=== PATIENT | female | born 1975 | race Caucasian/White ===

== ENCOUNTER → 2016-03-18 | Outpatient (CLI) | payer MEDICARE, MEDICAID ==
[~2016-03-18] MED LIST: ACETAMINOPHEN-H1 TA2 PO; ATIVAN1 MG PO; AUGMENTIN 875 M1 TAB PO; BACTRIM 400 MG-1 TAB PO; BACTRIM DS 8001 TA1 PO; BENADRYL ALLERG25 M5 PO; BENADRYL25 M1 PO; BENADRYL25 M2 PO; BENADRYL50 MG PO; BENTYL PO; BENTYL10 MG PO; BIAXIN500 MG PO; CHERATUSSIN AC240 ML PO; CIPRO500 MG PO; CIPROFLOXACIN500 MG PO; CLARITIN10 MG PO; CLEOCIN150 MG PO; CLINDAMYCIN HC300 MG PO; CYCLOBENZAPRINE10 MG PO; CYCLOBENZAPRINE5 M3 PO; DICYCLOMINE HYD20 MG PO; DOK PLUS 50 MG-1 TAB PO; EPIPEN 2-PAK1 MG/ML IJ; EPIPEN 2-PAK1 MG/ML MR; ESCITALOPRAM OX20 MG PO; FAMOTIDINE20 M1 PO; FLAGYL500 MG PO; HYDROCODONE BIT1 T11 PO; KLONOPIN1 MG PO; MEDROL DOSEPAK4 MG PO; METHYLPRED-DP4 MG PO; MOTRIN800 MG PO; NIGHTTIME SLEEP PO; NORCO 10-325 T1 EACH PO; NORCO 325 MG-101 TAB PO; NORCO 325 MG-51 TAB PO; NORCO 5-325 TA1 EACH PO; PEN-V500 MG PO; PENICILLIN V P250 MG PO; PEPCID40 MG PO; PERCOCET 325 MG1 TA2 PO; PERCOCET 325 MG1 TA7 PO; PERIDEX 480 ML480 ML PO; PHARBEDRYL PO; PREDNICOT20 MG PO; PREDNISONE10 MG PO; PREDNISONE20 M1 PO; PROAIR HFA8.5 GM IH; PROMETHAZINE D240 ML PO; Peridex 473 ML473 ML PO; SOMA350 MG PO; TOPAMAX100 MG PO; TRAMADOL HCL50 MG PO; TRAZADONE HYDR100 MG PO; TYLENOL EXTRA500 M2 PO; ULTRAM50 MG PO; VALIUM10 MG PO; VENTOLIN H0.09 MG/AC INH; VICO10300 PO; VICODIN 5-3001 EACH PO; VIVITROL380 MG IM; WELLBUTRIN SR200 MG PO; XANAX0.25 MG PO; ZITHROMAX250 MG PO; ZOFRAN ODT4 MG SL; ZOLOFT100 MG PO; ZOVIRAX200 MG PO; ZOVIRAX800 MG PO; ZYRTEC10 MG PO
== END | disposition home or self-care (01) ==
LOC: RESCLI 03:40
DX: D64.9 Anemia, unspecified (principal); J45.909 Unspecified asthma, uncomplicated; E55.9 Vitamin D deficiency, unspecified; R53.83 Other fatigue

== ENCOUNTER 2017-01-10 18:48 | Emergency (ER) | payer MEDICARE ==
[~2017-01-10] VITALS: Ht 172.7 cm; Wt 99.8 kg
[2017-01-10] MEDS ORDERED: PROVENTIL HFA6.7 GM INH (19:03)
[2017-01-10 19:05] VITALS: BP 132/88
[2017-01-10] MEDS ORDERED: PREDNISONE10 MG PO (19:09)
== END 2017-01-10 19:16 | disposition home or self-care (01) ==
LOC: ED 18:48
DX: R21 Rash and other nonspecific skin eruption (principal); R03.0 Elevated blood-pressure reading, without diagnosis of hypertension; F17.210 Nicotine dependence, cigarettes, uncomplicated; J45.909 Unspecified asthma, uncomplicated; G89.29 Other chronic pain; M54.5 Low back pain; K21.9 Gastro-esophageal reflux disease without esophagitis; K58.9 Irritable bowel syndrome, unspecified; G43.909 Migraine, unspecified, not intractable, without status migrainosus; E66.9 Obesity, unspecified; Z79.899 Other long term (current) drug therapy; Z90.49 Acquired absence of other specified parts of digestive tract; Z98.51 Tubal ligation status; Z90.711 Acquired absence of uterus with remaining cervical stump; Z88.1 Allergy status to other antibiotic agents; Z88.0 Allergy status to penicillin; Z91.041 Radiographic dye allergy status; Z88.5 Allergy status to narcotic agent

== ENCOUNTER 2017-01-18 09:03 | Emergency (ER) | payer MEDICARE ==
[~2017-01-18] VITALS: Ht 172.7 cm; Wt 99.8 kg
[~2017-01-18 09:03] MED LIST changes: +PROVENTIL HFA6.7 GM INH
[2017-01-18 09:11] VITALS: BP 116/79
[2017-01-18] MEDS ORDERED: 'CYPROHEPTADINE4 MG PO (09:13)
[2017-01-18] MEDS ORDERED: IPRATROPIUM BRO15 ML NAS (09:13)
[2017-01-18] MEDS ORDERED: AZELASTINE137 MCG/0. NAS (09:13)
[2017-01-18] MEDS ORDERED: BREO ELLIPTA 11 EACH INH (09:14)
== END 2017-01-18 11:39 | disposition home or self-care (01) ==
LOC: ED 09:03
DX: T78.40XA Allergy, unspecified, initial encounter (principal); F17.210 Nicotine dependence, cigarettes, uncomplicated; K21.9 Gastro-esophageal reflux disease without esophagitis; J44.1 Chronic obstructive pulmonary disease with (acute) exacerbation; G89.29 Other chronic pain; X58.XXXA Exposure to other specified factors, initial encounter; Z88.0 Allergy status to penicillin; Z90.49 Acquired absence of other specified parts of digestive tract; Z98.51 Tubal ligation status; Z88.6 Allergy status to analgesic agent

== ENCOUNTER 2017-03-09 13:41 | Emergency (ER) | payer MEDICARE ==
[~2017-03-09] VITALS: Ht 172.7 cm; Wt 90.7 kg
[~2017-03-09 13:41] MED LIST changes: +'CYPROHEPTADINE4 MG PO; +AZELASTINE137 MCG/0. NAS; +BREO ELLIPTA 11 EACH INH; +IPRATROPIUM BRO15 ML NAS
[2017-03-09 13:47] VITALS: BP 133/61
[2017-03-09] MEDS ORDERED: PREDNISONE10 MG PO (13:56)
== END 2017-03-09 14:01 | disposition home or self-care (01) ==
LOC: ED 13:41
DX: R21 Rash and other nonspecific skin eruption (principal); R03.0 Elevated blood-pressure reading, without diagnosis of hypertension; J44.1 Chronic obstructive pulmonary disease with (acute) exacerbation; K58.9 Irritable bowel syndrome, unspecified; G89.29 Other chronic pain; F41.9 Anxiety disorder, unspecified; J45.909 Unspecified asthma, uncomplicated; F17.210 Nicotine dependence, cigarettes, uncomplicated; K21.9 Gastro-esophageal reflux disease without esophagitis; F32.9 Major depressive disorder, single episode, unspecified; Z88.0 Allergy status to penicillin; Z88.8 Allergy status to other drugs, medicaments and biological substances; Z91.041 Radiographic dye allergy status; Z88.6 Allergy status to analgesic agent; Z91.018 Allergy to other foods; Z79.899 Other long term (current) drug therapy; Z90.49 Acquired absence of other specified parts of digestive tract; Z90.710 Acquired absence of both cervix and uterus; Z98.51 Tubal ligation status

== ENCOUNTER 2017-03-17 19:28 | Emergency (ER) | payer MEDICARE ==
[~2017-03-17] VITALS: Ht 172.7 cm; Wt 99.8 kg
[2017-03-17 21:00] VITALS: BP 102/60
[2017-03-17] MEDS ORDERED: PREDNISONE10 MG PO (21:27)
== END 2017-03-17 22:50 | disposition home or self-care (01) ==
LOC: ED 19:28
DX: L50.8 Other urticaria (principal); F17.210 Nicotine dependence, cigarettes, uncomplicated; Z90.49 Acquired absence of other specified parts of digestive tract; Z98.51 Tubal ligation status; Z90.711 Acquired absence of uterus with remaining cervical stump; Z79.899 Other long term (current) drug therapy; Z88.1 Allergy status to other antibiotic agents; Z88.0 Allergy status to penicillin; Z88.6 Allergy status to analgesic agent; Z91.041 Radiographic dye allergy status; Z91.018 Allergy to other foods

== ENCOUNTER 2017-03-21 17:01 | Emergency (ER) | payer MEDICARE ==
[~2017-03-21] VITALS: Ht 172.7 cm; Wt 99.8 kg
[2017-03-21] MEDS ORDERED: BENADRYL ALLERG25 M5 PO (17:10)
[2017-03-21 17:11] VITALS: BP 149/85
[2017-03-21] MEDS ORDERED: PEPCID40 MG PO (17:11)
[2017-03-21 17:43] LABS: HEMATOCRIT 37.1 % (37.0-47.0); HEMOGLOBIN 12.2 g/dl (12.0-16.0); MEAN CELL VOLUME 84.7 fl (81.0-99.0); MEAN CORPUSCULAR HGB 27.9 pg (27.0-31.0); MEAN CORPUSCULAR HGB CONC 32.9 g/dl (33.0-37.0); MEAN PLATELET VOLUME 10.1 fl (9.6-12.3); PLATELET COUNT AUTOMATED 298 10*3/uL (130-400); RED BLOOD COUNT 4.38 10*6/uL (4.10-5.10); RED CELL DISTRI WIDTH 13.8 % (0-14.5); WHITE BLOOD COUNT 17.5 10*3/uL (4.8-10.8)
[2017-03-21 18:01] LABS: ALBUMIN 3.7 gm/dl (3.1-4.5); ALKALINE PHOSPHATASE 62 U/L (45-117); BUN 16 mg/dl (7-24); CHLORIDE 105 mmol/L (98-107); CREATININE 0.68 mg/dL (0.55-1.02); SGOT/AST 7 IU/L (3-35); SGPT/ALT 26 U/L (12-78); SODIUM 142 mmol/L (136-145); TOTAL PROTEIN 6.9 gm/dL (6.4-8.2)
[2017-03-21 18:02] LABS: TROPONIN I < 0.015 ng/ml (<0.045)
[2017-03-21 18:11] LABS: ATYPICAL LYMPHS 1 % (0-0); TOTAL CELLS COUNTED 100 #CELLS
[2017-03-21 18:12] LABS: PLATELET SUFFICIENCY NORMAL (NORMAL)
== END 2017-03-21 18:34 | disposition home or self-care (01) ==
LOC: ED 17:01
PROVIDERS: Nurse Practitioner Family
DX: F41.9 Anxiety disorder, unspecified (principal); K21.9 Gastro-esophageal reflux disease without esophagitis; E66.9 Obesity, unspecified; F17.210 Nicotine dependence, cigarettes, uncomplicated; G43.909 Migraine, unspecified, not intractable, without status migrainosus; G89.29 Other chronic pain; Z88.0 Allergy status to penicillin; Z88.6 Allergy status to analgesic agent; Z90.49 Acquired absence of other specified parts of digestive tract; Z98.51 Tubal ligation status; Z91.041 Radiographic dye allergy status; Z88.1 Allergy status to other antibiotic agents; Z91.018 Allergy to other foods

== ENCOUNTER 2017-07-26 11:03 | Emergency (ER) | payer MEDICARE ==
[~2017-07-26] VITALS: Ht 172.7 cm; Wt 99.8 kg
[2017-07-26] MEDS ORDERED: TOPIRAMATE50 M2 PO (11:25)
[2017-07-26] MEDS ORDERED: HYDROXYZINE HCL25 M1 PO (11:25)
[2017-07-26] MEDS ORDERED: MONTELUKAST SOD10 MG PO (11:26)
[2017-07-26 12:05] LABS: BASO # 0.1 10*3/uL (0.0-0.1); BASO % 0.8 % (0.0-1.0); EOS # 0.3 10*3/uL (0.0-0.4); EOS % 4.4 % (1.0-4.0); HEMATOCRIT 37.8 % (37.0-47.0); HEMOGLOBIN 12.4 g/dl (12.0-16.0); LYMPH % 32.1 % (27.0-41.0); MEAN CELL VOLUME 82.7 fl (81.0-99.0); MEAN CORPUSCULAR HGB 27.1 pg (27.0-31.0); MEAN CORPUSCULAR HGB CONC 32.8 g/dl (33.0-37.0); MEAN PLATELET VOLUME 10.6 fl (9.6-12.3); MONO # 0.3 10*3/uL (0.1-1.0); MONO % 5.2 % (3.0-9.0); NEUT # 3.5 10*3/uL (2.3-7.9); NEUT % 57.2 % (47.0-73.0); PLATELET COUNT AUTOMATED 280 10*3/uL (130-400); RED BLOOD COUNT 4.57 10*6/uL (4.10-5.10); WHITE BLOOD COUNT 6.1 10*3/uL (4.8-10.8)
[2017-07-26 12:28] LABS: ALKALINE PHOSPHATASE 64 U/L (45-117); BUN 11 mg/dl (7-24); CHLORIDE 113 mmol/L (98-107); SGOT/AST 11 IU/L (3-35); SGPT/ALT 18 U/L (12-78); SODIUM 144 mmol/L (136-145); TOTAL PROTEIN 7.1 gm/dL (6.4-8.2)
[2017-07-26 12:29] LABS: TROPONIN I < 0.015 ng/ml (<0.045)
[2017-07-26 12:53] VITALS: BP 128/75
[2017-07-26] MEDS ORDERED: XANAX0.25 MG PO (13:05)
== END 2017-07-26 13:26 | disposition home or self-care (01) ==
LOC: ED 11:03
PROVIDERS: Emergency Medicine
DX: F41.9 Anxiety disorder, unspecified (principal); G89.29 Other chronic pain; J45.909 Unspecified asthma, uncomplicated; K21.9 Gastro-esophageal reflux disease without esophagitis; K58.9 Irritable bowel syndrome, unspecified; G43.909 Migraine, unspecified, not intractable, without status migrainosus; F17.210 Nicotine dependence, cigarettes, uncomplicated; E66.9 Obesity, unspecified; Z90.49 Acquired absence of other specified parts of digestive tract; Z98.51 Tubal ligation status; Z88.1 Allergy status to other antibiotic agents; Z88.0 Allergy status to penicillin; Z91.041 Radiographic dye allergy status; Z91.018 Allergy to other foods; Z88.6 Allergy status to analgesic agent

== ENCOUNTER 2017-08-09 23:14 | Emergency (ER) | payer MEDICARE ==
[~2017-08-09] VITALS: Ht 173.9 cm; Wt 99.8 kg
[2017-08-09 23:14] VITALS: BP 119/61
[~2017-08-09 23:14] MED LIST changes: +HYDROXYZINE HCL25 M1 PO; +MONTELUKAST SOD10 MG PO; +TOPIRAMATE50 M2 PO
[2017-08-10 00:15] LABS: BASO % 0.3 % (0.0-1.0); EOS # 0.4 10*3/uL (0.0-0.4); EOS % 5.7 % (1.0-4.0); HEMOGLOBIN 12.4 g/dl (12.0-16.0); LYMPH # 2.3 10*3/uL (1.3-4.4); LYMPH % 30.7 % (27.0-41.0); MEAN CELL VOLUME 81.1 fl (81.0-99.0); MEAN CORPUSCULAR HGB 27.2 pg (27.0-31.0); MEAN CORPUSCULAR HGB CONC 33.5 g/dl (33.0-37.0); MEAN PLATELET VOLUME 10.8 fl (9.6-12.3); MONO # 0.4 10*3/uL (0.1-1.0); MONO % 5.5 % (3.0-9.0); NEUT # 4.3 10*3/uL (2.3-7.9); NEUT % 57.5 % (47.0-73.0); PLATELET COUNT AUTOMATED 256 10*3/uL (130-400); RED BLOOD COUNT 4.56 10*6/uL (4.10-5.10); RED CELL DISTRI WIDTH 13.1 % (0-14.5); WHITE BLOOD COUNT 7.5 10*3/uL (4.8-10.8)
[2017-08-10 00:32] LABS: ALBUMIN 4.1 gm/dl (3.1-4.5); ALKALINE PHOSPHATASE 67 U/L (45-117); BUN 18 mg/dl (7-24); CHLORIDE 111 mmol/L (98-107); CREATININE 1.14 mg/dL (0.55-1.02); POTASSIUM 3.4 mmol/L (3.5-5.1); SGOT/AST 15 IU/L (3-35); SGPT/ALT 22 U/L (12-78); SODIUM 143 mmol/L (136-145); TOTAL PROTEIN 7.3 gm/dL (6.4-8.2)
[2017-08-10 00:35] LABS: TROPONIN I < 0.015 ng/ml (<0.045)
[2017-08-10] MEDS ORDERED: Orphenadrine C100 MG PO (01:01)
[2017-08-10] MEDS ORDERED: TYLENOL325 M1 PO (01:01)
[2017-08-10] MEDS ORDERED: XANAX0.5 MG PO (01:03)
[2017-09-13] MEDS ORDERED: MEDROL DOSEPAK4 MG PO (21:28)
== END 2017-08-10 02:17 | disposition home or self-care (01) ==
LOC: ED 23:14
PROVIDERS: Emergency Medicine Emergency Medical Services
DX: S16.1XXA Strain of muscle, fascia and tendon at neck level, initial encounter (principal); F41.1 Generalized anxiety disorder; J44.1 Chronic obstructive pulmonary disease with (acute) exacerbation; K21.9 Gastro-esophageal reflux disease without esophagitis; Z90.49 Acquired absence of other specified parts of digestive tract; Z88.0 Allergy status to penicillin; Z88.8 Allergy status to other drugs, medicaments and biological substances; X58.XXXA Exposure to other specified factors, initial encounter; Y93.89 Activity, other specified; Y92.89 Other specified places as the place of occurrence of the external cause; Y99.8 Other external cause status

== ENCOUNTER 2017-08-15 19:27 | Emergency (ER) | payer MEDICARE ==
[~2017-08-15] VITALS: Ht 172.7 cm; Wt 99.8 kg
[~2017-08-15 19:27] MED LIST changes: +Orphenadrine C100 MG PO; +TYLENOL325 M1 PO; +XANAX0.5 MG PO
[2017-08-15] MEDS ORDERED: XANAX0.5 MG PO (19:47)
[2017-09-13] MEDS ORDERED: MEDROL DOSEPAK4 MG PO (21:28)
== END 2017-08-15 20:20 | disposition home or self-care (01) ==
LOC: ED 19:27
DX: F41.1 Generalized anxiety disorder (principal); F43.0 Acute stress reaction; K21.9 Gastro-esophageal reflux disease without esophagitis; J44.9 Chronic obstructive pulmonary disease, unspecified; G43.909 Migraine, unspecified, not intractable, without status migrainosus; F17.210 Nicotine dependence, cigarettes, uncomplicated; Z88.0 Allergy status to penicillin; Z88.1 Allergy status to other antibiotic agents; Z88.6 Allergy status to analgesic agent; Z91.041 Radiographic dye allergy status; Z91.018 Allergy to other foods; Z79.899 Other long term (current) drug therapy

== ENCOUNTER 2017-09-15 21:47 | Emergency (ER) | payer MEDICARE ==
[~2017-09-15] VITALS: Ht 172.7 cm; Wt 99.8 kg
[2017-09-15 21:48] VITALS: BP 118/50
[2017-09-15] MEDS ORDERED: BENADRYL ALLERG25 M5 PO (22:03)
[2017-09-15] MEDS ORDERED: PREDNISONE20 M1 PO (22:03)
[2017-11-04] MEDS ORDERED: PREDNISONE10 MG PO (02:53)
== END 2017-09-15 22:15 | disposition home or self-care (01) ==
LOC: ED 21:47
DX: R21 Rash and other nonspecific skin eruption (principal); J44.9 Chronic obstructive pulmonary disease, unspecified; K21.9 Gastro-esophageal reflux disease without esophagitis; G43.909 Migraine, unspecified, not intractable, without status migrainosus; F17.210 Nicotine dependence, cigarettes, uncomplicated; Z88.0 Allergy status to penicillin; Z88.1 Allergy status to other antibiotic agents; Z88.6 Allergy status to analgesic agent; Z91.041 Radiographic dye allergy status; Z91.018 Allergy to other foods; Z88.8 Allergy status to other drugs, medicaments and biological substances; Z79.899 Other long term (current) drug therapy

== ENCOUNTER 2017-09-26 21:05 | Emergency (ER) | payer MEDICARE ==
[~2017-09-26] VITALS: Ht 172.7 cm; Wt 99.8 kg
[2017-09-26 21:34] LABS: BILIRUBIN NEGATIVE (NEGATIVE); BLOOD NEGATIVE (NEGATIVE); CLARITY CLEAR (CLEAR); COLOR YELLOW (YELLOW); GLUCOSE NEGATIVE (NEGATIVE); KETONE NEGATIVE (NEGATIVE); LEUKO ESTERASE NEGATIVE (NEGATIVE); NITRITE NEGATIVE (NEGATIVE); SPECIFIC GRAVITY 1.025 (1.005-1.030); UROBILINOGEN 0.2 E.U./dl (0.2-1.0)
[2017-09-26 21:42] LABS: BACTERIA 1+; RBC 0-2 rbc/hpf (0-2)
[2017-09-26 22:13] LABS: HEMATOCRIT 36.4 % (37.0-47.0); MEAN CELL VOLUME 83.1 fl (81.0-99.0); MEAN CORPUSCULAR HGB 27.4 pg (27.0-31.0); MEAN PLATELET VOLUME 10.3 fl (9.6-12.3); PLATELET COUNT AUTOMATED 262 10*3/uL (130-400); RED BLOOD COUNT 4.38 10*6/uL (4.10-5.10); WHITE BLOOD COUNT 18.3 10*3/uL (4.8-10.8)
[2017-09-26 22:28] LABS: ALKALINE PHOSPHATASE 67 U/L (45-117); BUN 18 mg/dl (7-24); CHLORIDE 113 mmol/L (98-107); CREATININE 0.91 mg/dL (0.55-1.02); LIPASE 111 U/L (73-393); POTASSIUM 3.8 mmol/L (3.5-5.1); SGOT/AST 9 IU/L (3-35); SGPT/ALT 32 U/L (12-78); SODIUM 142 mmol/L (136-145)
[2017-09-26 22:34] LABS: BASOPHILS 1 % (0-1); TOTAL CELLS COUNTED 100 #CELLS
[2017-09-26 22:35] LABS: PLATELET SUFFICIENCY NORMAL (NORMAL); POLYCHROMASIA SLIGHT
[2017-09-27 00:18] VITALS: BP 139/56
[2017-09-27] MEDS ORDERED: CIPRO500 MG PO (00:46)
[2017-11-04] MEDS ORDERED: PREDNISONE10 MG PO (02:53)
== END 2017-09-27 01:12 | disposition home or self-care (01) ==
LOC: ED 21:05
PROVIDERS: Physician Assistant
DX: N39.0 Urinary tract infection, site not specified (principal); R10.30 Lower abdominal pain, unspecified; F17.210 Nicotine dependence, cigarettes, uncomplicated; Z90.49 Acquired absence of other specified parts of digestive tract; Z98.51 Tubal ligation status; Z90.711 Acquired absence of uterus with remaining cervical stump; Z79.899 Other long term (current) drug therapy; Z88.1 Allergy status to other antibiotic agents; Z88.0 Allergy status to penicillin; Z88.6 Allergy status to analgesic agent; Z91.041 Radiographic dye allergy status; Z88.5 Allergy status to narcotic agent

== ENCOUNTER → 2017-11-18 | Day surgery (SDC) | payer MEDICARE ==
[~2017-11-18] VITALS: Ht 172.7 cm; Wt 99.8 kg
[~2017-11-18] MED LIST changes: +KLONOPIN0.5 MG PO; +LEXAPRO20 MG PO; +MELATONIN10 M4 PO; +NEURONTIN600 MG PO; +PROBIOTIC250 MG PO; +WELLBUTRIN SR150 MG PO
[2017-11-18 09:00] VITALS: BP 105/63
[2017-11-18 10:23] VITALS: BP 116/42
[2017-11-18 10:38] VITALS: BP 110/62
[2017-11-18 10:53] VITALS: BP 106/55
== END | disposition home or self-care (01) ==
LOC: SDC 11-17 10:15
DX: K29.50 Unspecified chronic gastritis without bleeding (principal); K44.9 Diaphragmatic hernia without obstruction or gangrene; R19.7 Diarrhea, unspecified; R19.4 Change in bowel habit; J45.909 Unspecified asthma, uncomplicated; K21.9 Gastro-esophageal reflux disease without esophagitis; G43.909 Migraine, unspecified, not intractable, without status migrainosus; F41.8 Other specified anxiety disorders; M79.7 Fibromyalgia; F17.210 Nicotine dependence, cigarettes, uncomplicated; Z98.51 Tubal ligation status; Z90.710 Acquired absence of both cervix and uterus; Z90.49 Acquired absence of other specified parts of digestive tract; Z88.6 Allergy status to analgesic agent; Z88.1 Allergy status to other antibiotic agents; Z91.041 Radiographic dye allergy status; Z88.5 Allergy status to narcotic agent; Z88.0 Allergy status to penicillin; Z88.8 Allergy status to other drugs, medicaments and biological substances; Z91.018 Allergy to other foods; Z79.899 Other long term (current) drug therapy; Z80.1 Family history of malignant neoplasm of trachea, bronchus and lung; Z80.49 Family history of malignant neoplasm of other genital organs

== ENCOUNTER 2018-01-06 07:06 | Emergency (ER) | payer MEDICARE ==
[~2018-01-06] VITALS: Ht 172.7 cm; Wt 99.8 kg
[2018-01-06 07:09] VITALS: BP 129/68
[2018-01-06] MEDS ORDERED: MEDROL DOSEPAK4 MG PO (09:24)
== END 2018-01-06 09:37 | disposition home or self-care (01) ==
LOC: ED 07:06
DX: T78.3XXA Angioneurotic edema, initial encounter (principal); J44.9 Chronic obstructive pulmonary disease, unspecified; G89.29 Other chronic pain; K21.9 Gastro-esophageal reflux disease without esophagitis; G43.909 Migraine, unspecified, not intractable, without status migrainosus; E66.9 Obesity, unspecified; F17.210 Nicotine dependence, cigarettes, uncomplicated; Z88.0 Allergy status to penicillin; Z88.1 Allergy status to other antibiotic agents; Z88.6 Allergy status to analgesic agent; Z91.018 Allergy to other foods; Z88.8 Allergy status to other drugs, medicaments and biological substances; Z79.899 Other long term (current) drug therapy; Z90.710 Acquired absence of both cervix and uterus; Z98.890 Other specified postprocedural states

== ENCOUNTER 2018-03-11 19:55 | Emergency (ER) | payer MEDICARE ==
[~2018-03-11] VITALS: Wt 90.7 kg
[2018-03-11 19:57] VITALS: BP 127/63
[2018-03-11] MEDS ORDERED: PROAIR HFA8.5 GM INH (20:36)
== END 2018-03-11 20:45 | disposition home or self-care (01) ==
LOC: ED 19:55
DX: J45.909 Unspecified asthma, uncomplicated (principal); Z76.0 Encounter for issue of repeat prescription; F17.210 Nicotine dependence, cigarettes, uncomplicated; Z88.0 Allergy status to penicillin; Z88.1 Allergy status to other antibiotic agents; Z88.6 Allergy status to analgesic agent; Z88.8 Allergy status to other drugs, medicaments and biological substances; Z91.018 Allergy to other foods; Z91.041 Radiographic dye allergy status; Z79.899 Other long term (current) drug therapy

== ENCOUNTER 2018-11-14 17:28 | Emergency (ER) | payer MEDICARE ==
[~2018-11-14] VITALS: Ht 172.7 cm; Wt 95.3 kg
[~2018-11-14 17:28] MED LIST changes: +PROAIR HFA8.5 GM INH
[2018-11-14 17:32] VITALS: BP 110/46
[2018-11-14 17:56] LABS: BASO # 0.1 10*3/uL (0.0-0.1); BASO % 0.8 % (0.0-1.0); EOS # 0.4 10*3/uL (0.0-0.4); EOS % 6.8 % (1.0-4.0); HEMATOCRIT 34.9 % (37.0-47.0); HEMOGLOBIN 11.8 g/dl (12.0-16.0); LYMPH # 2.1 10*3/uL (1.3-4.4); LYMPH % 33.2 % (27.0-41.0); MEAN CELL VOLUME 85.1 fl (81.0-99.0); MEAN CORPUSCULAR HGB 28.8 pg (27.0-31.0); MEAN CORPUSCULAR HGB CONC 33.8 g/dl (33.0-37.0); MEAN PLATELET VOLUME 10.2 fl (9.6-12.3); MONO # 0.4 10*3/uL (0.1-1.0); MONO % 6.7 % (3.0-9.0); NEUT # 3.2 10*3/uL (2.3-7.9); NEUT % 50.9 % (47.0-73.0); PLATELET COUNT AUTOMATED 260 10*3/uL (130-400); RED CELL DISTRI WIDTH 14.6 % (0-14.5); WHITE BLOOD COUNT 6.3 10*3/uL (4.8-10.8)
[2018-11-14 18:14] LABS: ALBUMIN 3.5 gm/dl (3.1-4.5); ALKALINE PHOSPHATASE 68 U/L (45-117); BUN 18 mg/dl (7-24); CHLORIDE 114 mmol/L (98-107); CREATININE 0.84 mg/dL (0.55-1.02); LIPASE 133 U/L (73-393); POTASSIUM 3.6 mmol/L (3.5-5.1); SGOT/AST 6 IU/L (3-35); SGPT/ALT 16 U/L (12-78); SODIUM 142 mmol/L (136-145); TOTAL PROTEIN 6.6 gm/dL (6.4-8.2)
[2018-11-14 18:48] LABS: BILIRUBIN NEGATIVE (NEGATIVE); BLOOD NEGATIVE (NEGATIVE); CLARITY CLEAR (CLEAR); COLOR YELLOW (YELLOW); GLUCOSE NEGATIVE (NEGATIVE); KETONE NEGATIVE (NEGATIVE); LEUKO ESTERASE NEGATIVE (NEGATIVE); NITRITE NEGATIVE (NEGATIVE); SPECIFIC GRAVITY >= 1.030 (1.005-1.030); UROBILINOGEN 0.2 E.U./dl (0.2-1.0)
[2018-11-14] MEDS ORDERED: MIRALAX POWDER17 G1 PO (19:02)
== END 2018-11-14 19:06 | disposition home or self-care (01) ==
LOC: ED 17:28
PROVIDERS: Physician Assistant
DX: S30.811A Abrasion of abdominal wall, initial encounter (principal); K59.00 Constipation, unspecified; F17.210 Nicotine dependence, cigarettes, uncomplicated; Z88.1 Allergy status to other antibiotic agents; Z88.0 Allergy status to penicillin; Z88.6 Allergy status to analgesic agent; Z90.49 Acquired absence of other specified parts of digestive tract; Z90.711 Acquired absence of uterus with remaining cervical stump; Z91.040 Latex allergy status; Z79.899 Other long term (current) drug therapy; X58.XXXA Exposure to other specified factors, initial encounter; Y93.89 Activity, other specified; Y92.89 Other specified places as the place of occurrence of the external cause; Y99.8 Other external cause status

== ENCOUNTER 2019-01-25 07:28 | Inpatient (IN) | payer MEDICARE ==
[~2019-01-25] VITALS: Ht 174 cm; Wt 92.2 kg
[2019-01-25] VITALS (8 sets, daily range): BP systolic 89–130; BP diastolic 42–82
--- NOTE | ~2019-01-25 | EKG ---
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
--- NOTE | ~2019-01-25 | EKG ---
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
--- NOTE | ~2019-01-25 | EKG ---
[place], [place] ELECTROCARDIOGRAM REPORT NAME: PATSY ABRAMS UNIT #: [id number] ROOM: 404 DOCTOR: CARMEN DRAFT REPORT BIRTHDATE: [birth year] [facility] Test Date: 2019-01-25 Test Time: 13:41:23 Pat Name: PATSY ABRAMS Department: Room: 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
[~2019-01-25 07:28] MED LIST changes: +MIRALAX POWDER17 G1 PO
[2019-01-25 07:50] LABS: BASO % 0.3 % (0.0-1.0); EOS # 0.3 10*3/uL (0.0-0.4); EOS % 3.2 % (1.0-4.0); HEMATOCRIT 36.9 % (37.0-47.0); HEMOGLOBIN 12.7 g/dl (12.0-16.0); LYMPH # 1.6 10*3/uL (1.3-4.4); LYMPH % 16.8 % (27.0-41.0); MEAN CELL VOLUME 84.8 fl (81.0-99.0); MEAN CORPUSCULAR HGB 29.2 pg (27.0-31.0); MEAN CORPUSCULAR HGB CONC 34.4 g/dl (33.0-37.0); MONO # 0.4 10*3/uL (0.1-1.0); MONO % 4.5 % (3.0-9.0); NEUT # 7.3 10*3/uL (2.3-7.9); NEUT % 74.7 % (47.0-73.0); PLATELET COUNT AUTOMATED 240 10*3/uL (130-400); RED BLOOD COUNT 4.35 10*6/uL (4.10-5.10); RED CELL DISTRI WIDTH 12.9 % (0-14.5); WHITE BLOOD COUNT 9.8 10*3/uL (4.8-10.8)
[2019-01-25 08:01] LABS: INTERNATIONAL NORM RATIO 0.9 (2.0-3.5)
[2019-01-25 08:06] LABS: ALBUMIN 3.9 gm/dl (3.1-4.5); ALKALINE PHOSPHATASE 69 U/L (45-117); BUN 19 mg/dl (7-24); CHLORIDE 113 mmol/L (98-107); CREATININE 1.05 mg/dL (0.55-1.02); POTASSIUM 3.6 mmol/L (3.5-5.1); SGOT/AST 14 IU/L (3-35); SGPT/ALT 22 U/L (12-78); SODIUM 141 mmol/L (136-145); TOTAL PROTEIN 7.2 gm/dL (6.4-8.2)
[2019-01-25 08:10] LABS: TROPONIN I < 0.015 ng/ml (<0.045)
[2019-01-25] MEDS ORDERED: SYNTHROID25 MCG PO (12:31)
[2019-01-25] MEDS ORDERED: MULTIVITAMINS1 EAC5 PO (12:32)
[2019-01-25] MEDS ORDERED: ATIVAN0.5 MG PO (12:33)
[2019-01-25] MEDS ORDERED: AMBIEN10 M1 PO (12:33)
[2019-01-25] MEDS ORDERED: STOOL SOFTENER100 M3 PO (12:33)
[2019-01-25] MEDS ORDERED: SINGULAIR10 M1 PO (12:34)
[2019-01-25] MEDS ORDERED: MINIPRESS5 MG PO (12:34)
[2019-01-25] MEDS ORDERED: BENADRYL ALLERG25 M5 PO (12:35)
[2019-01-25] MEDS ORDERED: PEPCID40 MG PO (12:35)
[2019-01-25] MEDS ORDERED: VISTARIL50 MG PO (12:37)
[2019-01-25] MEDS ORDERED: TOPAMAX100 M1 PO (12:37)
[2019-01-25] MEDS ORDERED: WELLBUTRIN SR150 MG PO ×2 (12:38→12:39)
[2019-01-25] MEDS ORDERED: NEURONTIN300 MG PO (12:43)
[2019-01-26] VITALS: BP 116/65
[2019-01-26 04:00] VITALS: BP 96/60
[2019-01-26 07:04] LABS: ALBUMIN 3.8 gm/dl (3.1-4.5); BUN 19 mg/dl (7-24); CHLORIDE 110 mmol/L (98-107); CHOLESTEROL 216 mg/dL (<200); CREATININE 1.03 mg/dL (0.55-1.02); HDL CHOLESTEROL 43 mg/dl (40-60); LDL CHOLESTEROL 151 mg/dL (9-159); PHOSPHOROUS 2.2 mg/dL (2.5-4.9); POTASSIUM 4.2 mmol/L (3.5-5.1); SGOT/AST 12 IU/L (3-35); SGPT/ALT 20 U/L (12-78); SODIUM 138 mmol/L (136-145); TOTAL PROTEIN 7.2 gm/dL (6.4-8.2); TRIGLYCERIDES 110 mg/dl (<150); VLDL CHOLESTEROL 22 mg/dL (6-40)
[2019-01-26 07:10] LABS: ALKALINE PHOSPHATASE 75 U/L (45-117); FREE T4 0.68 ng/dl (0.76-1.46)
[2019-01-26 07:58] LABS: VITAMIN D, 25-HYDROXY 28.5 ng/mL (30-100)
[2019-01-26 08:00] VITALS: BP 112/54; BP 96/60
[2019-01-26 12:00] VITALS: BP 116/57
[2019-01-26 12:40] LABS: BASO % 0.3 % (0.0-1.0); EOS % 0.1 % (1.0-4.0); HEMATOCRIT 40.6 % (37.0-47.0); HEMOGLOBIN 13.2 g/dl (12.0-16.0); LYMPH % 9.8 % (27.0-41.0); MEAN CELL VOLUME 86.4 fl (81.0-99.0); MEAN CORPUSCULAR HGB 28.1 pg (27.0-31.0); MEAN CORPUSCULAR HGB CONC 32.5 g/dl (33.0-37.0); MEAN PLATELET VOLUME 10.3 fl (9.6-12.3); MONO # 0.2 10*3/uL (0.1-1.0); MONO % 1.8 % (3.0-9.0); NEUT # 9.1 10*3/uL (2.3-7.9); NEUT % 87.4 % (47.0-73.0); PLATELET COUNT AUTOMATED 245 10*3/uL (130-400); RED CELL DISTRI WIDTH 12.9 % (0-14.5); WHITE BLOOD COUNT 10.4 10*3/uL (4.8-10.8)
[2019-01-26 16:00] VITALS: BP 105/58
[2019-01-26 20:00] VITALS: BP 115/68
[2019-01-27] VITALS: BP 107/70
[2019-01-27 05:50] LABS: URIC ACID 2.8 mg/dL (2.6-6.0); VANCOMYCIN TROUGH 14.5 ug/mL (10-20)
[2019-01-27 08:00] VITALS: BP 116/60
[2019-01-27] MEDS ORDERED: BACITRACIN 500U30 GM T (08:30)
[2019-01-27] MEDS ORDERED: SYNTHROID25 MCG PO ×2 (08:30→08:32)
[2019-01-27] MEDS ORDERED: PEPCID40 MG PO (08:30)
[2019-01-27] MEDS ORDERED: VITAMIN D32000 UNI1 PO (08:30)
[2019-01-27] MEDS ORDERED: NEURONTIN300 MG PO (08:30)
[2019-01-27] MEDS ORDERED: ZOLPIDEM TART5 MG PO (08:30)
[2019-01-27] MEDS ORDERED: CYCLOBENZAPRINE10 MG PO (08:30)
[2019-01-27] MEDS ORDERED: VIBRAMYCIN100 MG PO (08:30)
== END 2019-01-27 10:59 | disposition home or self-care (01) | DRG 602 ==
LOC: ED 07:28 → EDHOLD 09:39 → 4E 09:39
PROVIDERS: Emergency Medicine; Registered Nurse; ADMIT Family Medicine
DX: L03.211 Cellulitis of face (principal); N17.0 Acute kidney failure with tubular necrosis; I20.9 Angina pectoris, unspecified; F41.1 Generalized anxiety disorder; E03.9 Hypothyroidism, unspecified; F43.10 Post-traumatic stress disorder, unspecified; G43.909 Migraine, unspecified, not intractable, without status migrainosus; F32.9 Major depressive disorder, single episode, unspecified; R07.89 Other chest pain; F17.210 Nicotine dependence, cigarettes, uncomplicated; J45.909 Unspecified asthma, uncomplicated; G89.29 Other chronic pain; M54.5 Low back pain; J44.9 Chronic obstructive pulmonary disease, unspecified; K21.9 Gastro-esophageal reflux disease without esophagitis; K58.9 Irritable bowel syndrome, unspecified; E66.9 Obesity, unspecified; E78.5 Hyperlipidemia, unspecified; L27.0 Generalized skin eruption due to drugs and medicaments taken internally; T36.8X5A Adverse effect of other systemic antibiotics, initial encounter; Y92.238 Other place in hospital as the place of occurrence of the external cause; Z90.49 Acquired absence of other specified parts of digestive tract; Z90.711 Acquired absence of uterus with remaining cervical stump; Z98.51 Tubal ligation status; Z81.1 Family history of alcohol abuse and dependence; Z82.0 Family history of epilepsy and other diseases of the nervous system; Z82.49 Family history of ischemic heart disease and other diseases of the circulatory system; Z81.8 Family history of other mental and behavioral disorders; Z88.0 Allergy status to penicillin; Z88.6 Allergy status to analgesic agent; Z88.5 Allergy status to narcotic agent; Z88.1 Allergy status to other antibiotic agents; Z91.041 Radiographic dye allergy status; Z91.018 Allergy to other foods; Z79.899 Other long term (current) drug therapy; Z71.6 Tobacco abuse counseling; Z68.30 Body mass index [BMI] 30.0-30.9, adult

== ENCOUNTER 2019-03-27 16:15 | Emergency (ER) | payer MEDICARE ==
[~2019-03-27] VITALS: Ht 172.7 cm; Wt 94.8 kg
[~2019-03-27 16:15] MED LIST changes: +AMBIEN10 M1 PO; +ATIVAN0.5 MG PO; +BACITRACIN 500U30 GM T; +MINIPRESS5 MG PO; +MULTIVITAMINS1 EAC5 PO; +NEURONTIN300 MG PO; +SINGULAIR10 M1 PO; +STOOL SOFTENER100 M3 PO; +SYNTHROID25 MCG PO; +TOPAMAX100 M1 PO; +VIBRAMYCIN100 MG PO; +VISTARIL50 MG PO; +VITAMIN D32000 UNI1 PO; +ZOLPIDEM TART5 MG PO
[2019-03-27 17:40] LABS: BASO % 0.4 % (0.0-1.0); EOS # 0.2 10*3/uL (0.0-0.4); EOS % 2.4 % (1.0-4.0); HEMATOCRIT 39.2 % (37.0-47.0); HEMOGLOBIN 12.8 g/dl (12.0-16.0); LYMPH # 1.3 10*3/uL (1.3-4.4); MEAN CELL VOLUME 86.3 fl (81.0-99.0); MEAN CORPUSCULAR HGB 28.2 pg (27.0-31.0); MEAN CORPUSCULAR HGB CONC 32.7 g/dl (33.0-37.0); MEAN PLATELET VOLUME 10.1 fl (9.6-12.3); MONO # 0.2 10*3/uL (0.1-1.0); MONO % 2.7 % (3.0-9.0); NEUT # 5.5 10*3/uL (2.3-7.9); NEUT % 74.3 % (47.0-73.0); PLATELET COUNT AUTOMATED 297 10*3/uL (130-400); RED BLOOD COUNT 4.54 10*6/uL (4.10-5.10); RED CELL DISTRI WIDTH 13.8 % (0-14.5); WHITE BLOOD COUNT 7.4 10*3/uL (4.8-10.8)
[2019-03-27 17:43] LABS: URINE AMPHETAMINES < 1000 (1000ng/ml); URINE BARBITURATES < 200 (200ng/ml); URINE BENZODIAZEPINES > 200 (200ng/ml); URINE CANNABINOIDS (THC) < 50 (50ng/ml); URINE COCAINE < 300 (300ng/ml); URINE METHADONE < 300 (300ng/ml); URINE OPIATES < 300 (300ng/ml)
[2019-03-27 17:45] LABS: URINE PHENCYCLIDINE < 25 (25ng/ml)
[2019-03-27 17:46] LABS: BILIRUBIN NEGATIVE (NEGATIVE); BLOOD NEGATIVE (NEGATIVE); CLARITY CLEAR (CLEAR); COLOR YELLOW (YELLOW); GLUCOSE NEGATIVE (NEGATIVE); KETONE NEGATIVE (NEGATIVE); LEUKO ESTERASE NEGATIVE (NEGATIVE); NITRITE NEGATIVE (NEGATIVE); UROBILINOGEN 0.2 E.U./dl (0.2-1.0)
[2019-03-27 17:56] LABS: ALBUMIN 3.6 gm/dl (3.1-4.5); ALKALINE PHOSPHATASE 84 U/L (45-117); BUN 15 mg/dl (7-24); CHLORIDE 113 mmol/L (98-107); CREATININE 0.85 mg/dL (0.55-1.02); POTASSIUM 3.6 mmol/L (3.5-5.1); SGOT/AST 16 IU/L (3-35); SGPT/ALT 36 U/L (12-78); SODIUM 142 mmol/L (136-145); TOTAL PROTEIN 7.1 gm/dL (6.4-8.2)
[2019-03-27 18:02] LABS: BACTERIA 1+; WBC 0-2 wbc/hpf (0-5)
[2019-03-27 18:03] LABS: EPITHELIAL CELLS 0-2
[2019-03-27 18:05] LABS: ACETAMINOPHEN (TYLENOL) < 5.0 ug/ml (10-30); ETHYL ALCOHOL < 3.0 mg/dl (<3)
[2019-03-27 19:23] VITALS: BP 139/76
== END 2019-03-27 19:49 | disposition home or self-care (01) ==
LOC: ED 16:15
PROVIDERS: Nurse Practitioner Family
DX: F31.9 Bipolar disorder, unspecified (principal); F41.9 Anxiety disorder, unspecified; J44.9 Chronic obstructive pulmonary disease, unspecified; G89.29 Other chronic pain; K21.9 Gastro-esophageal reflux disease without esophagitis; G43.909 Migraine, unspecified, not intractable, without status migrainosus; E03.9 Hypothyroidism, unspecified; E66.9 Obesity, unspecified; F17.200 Nicotine dependence, unspecified, uncomplicated; Z88.1 Allergy status to other antibiotic agents; Z88.0 Allergy status to penicillin; Z88.6 Allergy status to analgesic agent; Z88.8 Allergy status to other drugs, medicaments and biological substances; Z91.041 Radiographic dye allergy status; Z91.048 Other nonmedicinal substance allergy status; Z91.018 Allergy to other foods; Z79.899 Other long term (current) drug therapy; Z90.49 Acquired absence of other specified parts of digestive tract; Z90.710 Acquired absence of both cervix and uterus

== ENCOUNTER 2019-03-29 03:59 | Inpatient (IN) | payer MEDICARE ==
[~2019-03-29] VITALS: Ht 172.7 cm; Wt 98.1 kg
[2019-03-29] VITALS (11 sets, daily range): BP systolic 104–134; BP diastolic 45–85
[2019-03-29 05:01] LABS: BASO % 0.6 % (0.0-1.0); EOS # 0.1 10*3/uL (0.0-0.4); EOS % 2.3 % (1.0-4.0); HEMATOCRIT 39.8 % (37.0-47.0); HEMOGLOBIN 12.7 g/dl (12.0-16.0); LYMPH # 1.6 10*3/uL (1.3-4.4); LYMPH % 25.6 % (27.0-41.0); MEAN CELL VOLUME 86.9 fl (81.0-99.0); MEAN CORPUSCULAR HGB 27.7 pg (27.0-31.0); MEAN CORPUSCULAR HGB CONC 31.9 g/dl (33.0-37.0); MEAN PLATELET VOLUME 10.5 fl (9.6-12.3); MONO # 0.3 10*3/uL (0.1-1.0); MONO % 4.5 % (3.0-9.0); NEUT % 64.7 % (47.0-73.0); PLATELET COUNT AUTOMATED 263 10*3/uL (130-400); RED BLOOD COUNT 4.58 10*6/uL (4.10-5.10); RED CELL DISTRI WIDTH 13.9 % (0-14.5); WHITE BLOOD COUNT 6.2 10*3/uL (4.8-10.8)
[2019-03-29 05:18] LABS: ALBUMIN 3.6 gm/dl (3.1-4.5); ALKALINE PHOSPHATASE 88 U/L (45-117); BUN 21 mg/dl (7-24); CHLORIDE 113 mmol/L (98-107); CREATININE 0.91 mg/dL (0.55-1.02); LIPASE 109 U/L (73-393); POTASSIUM 3.7 mmol/L (3.5-5.1); SGOT/AST 24 IU/L (3-35); SGPT/ALT 41 U/L (12-78); SODIUM 141 mmol/L (136-145); TOTAL PROTEIN 7.2 gm/dL (6.4-8.2)
--- NOTE | 2019-03-29 07:45 | NUR ---
A 43, admitted to , under the services of KD Lobo DO with a diagnosis of FACIAL CELLULITIS, ANGIOEDEMA. Chief complaint is FACIAL SWEELING. Patient arrived via stretcher from ER. Monitor applied. Initial assessment completed. Vital signs taken and recorded. KD LOBO DO notified of admission to the unit. Orders received. See assessment for past medical history, medications and allergies. Patient and/or family oriented to unit. [address] visitation policy reviewed. Clothing/patient valuable form completed. NANCY NORRIS
[2019-03-29] MEDS ORDERED: AMBIEN10 M1 PO (08:22)
--- NOTE | 2019-03-29 09:00 | NUR ---
Air Box Tester in to talk to patient. Patient states lives at home with family. There are few steps in the home. Physician: janet barrios [facility]acy[facility] Home health services: none Patient's level of ADLs: INDEPENDENT Patient has working utilities: all working DME: none Follow-up physician's appointment after d/c: will be made by hospitalist nurse director upon discharge Does patient want to access PORTAL?: no Discharge plan discussed with patient, she lives at home with family, she is independent in ald and ambulation, she states she will return home when medically stable and denies any home needs. CHARANJIT COOK
--- NOTE | 2019-03-29 09:30 | NUR ---
NOTIFIED PTS MED REC UP TO DATE AND THAT PT WOULD LIKE A PSYCH CONSULT.
--- NOTE | 2019-03-29 09:45 | NUR ---
OFFICE NOTIFIED OF NEW CONSULT.
--- NOTE | 2019-03-29 09:47 | NUR ---
OFFICE NOTIFIED OF NEW CONSULT.
[2019-03-29 10:50] LABS: BILIRUBIN NEGATIVE (NEGATIVE); BLOOD NEGATIVE (NEGATIVE); CLARITY SL CLOUDY (CLEAR); COLOR YELLOW (YELLOW); GLUCOSE NEGATIVE (NEGATIVE); KETONE NEGATIVE (NEGATIVE); LEUKO ESTERASE NEGATIVE (NEGATIVE); NITRITE NEGATIVE (NEGATIVE); PH 5.5 (5.0-9.0); SPECIFIC GRAVITY 1.025 (1.005-1.030); UROBILINOGEN 0.2 E.U./dl (0.2-1.0)
[2019-03-29 11:22] LABS: EPITHELIAL CELLS 20-25
--- NOTE | 2019-03-29 13:11 | NUR ---
PT OFF THE FLOOR FOR CT AT THIS TIME.
--- NOTE | 2019-03-29 13:51 | NUR ---
PT BACK FROM CT AT THIS TIME.
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
--- NOTE | 2019-03-29 15:08 | NUR ---
IV TORADOL GIVEN FOR ABDOMINAL PAIN RATED A 9/10. PER DR. WHITLOCK OK TO GIVEN ONE NOW. WILL CHECK EFFECTIVENESS. CALL LIGHT WITHIN REACH.
--- NOTE | 2019-03-29 15:32 | NUR ---
NOTIFIED OF NEW CONSULT.
--- NOTE | 2019-03-29 15:35 | NUR ---
RESTING IN BED EATING. NO COMPLAINTS AT THIS TIME. WILL MONITOR.
--- NOTE | 2019-03-29 16:06 | NUR ---
PT STATES PAIN MED WAS EFFECTIVE. RATING PAIN A 5/10. DENIES NEED FOR ANYTHING AT THIS TIME. WILL CONTINUE TO MONITOR.
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
--- NOTE | 2019-03-29 20:15 | NUR ---
PATIENT MEDICATED WITH ATIVAN FOR COMPLAINTS OF ANXIETY PER DRS ORDERS. TORADOL ALSO GIVEN AT THIS TIME FOR COMPLAINTS OF PAIN TO THE RIGHT EYE RELATED TO SWELLING. RN WILL CONTINUE TO MONITOR
--- NOTE | 2019-03-29 21:05 | NUR ---
PATIENT STATES RELIEF FROM PAIN AND ANXIETY WITH EARLIER MEDICATIONS. RN WILL CONTINUE TO MONITOR
--- NOTE | 2019-03-29 23:15 | NUR ---
PT RESTING IN BED. VOICES NO CONCERNS AT THIS TIME. RESPS EASY AND NON LABORED. NO S/S OF DISTRESS NOTED. WHITE BOARD UPDATED.VSS . CALL LIGHT WITHIN REACH.
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
[2019-03-30] VITALS: BP 117/62
--- NOTE | 2019-03-30 00:14 | NUR ---
PT MEDICATED FOR COMPLAINTS OF 10/10 ABD PAIN THAT "FEELS LIKE SHES GOING INTO LABOR" WELL INSOMNIA. PT RESTING COMFORTABLY IN BED PLAYING ON CELL PHONE AT THIS TIME. RESPS EASY AND NON LABORED. NO S/S OF DISTRESS NOTED. CALL LIGHT WITHIN REACH.
--- NOTE | 2019-03-30 01:15 | NUR ---
TYLENOL AND TEMAZEPAM EFFECTIVE. PT SLEEPING. RESPS EASY AND NON LABORED. NO S/S OF DISTRESS NOTED. CALL LIGHT WITHIN REACH
--- NOTE | 2019-03-30 03:40 | NUR ---
Patient sleeping. Respirations relaxed and easy. No s/s of distress noted Siderails up . [place] on. Call light within reach HISSOM,PINA
--- NOTE | 2019-03-30 05:09 | NUR ---
24 HR chart check completed.
[2019-03-30 06:19] LABS: BASO # 0.1 10*3/uL (0.0-0.1); BASO % 0.5 % (0.0-1.0); BUN 24 mg/dl (7-24); CHLORIDE 115 mmol/L (98-107); CREATININE 0.89 mg/dL (0.55-1.02); EOS # 0.1 10*3/uL (0.0-0.4); EOS % 0.7 % (1.0-4.0); HEMATOCRIT 33.9 % (37.0-47.0); HEMOGLOBIN 10.9 g/dl (12.0-16.0); LYMPH # 2.1 10*3/uL (1.3-4.4); LYMPH % 18.8 % (27.0-41.0); MEAN CELL VOLUME 86.7 fl (81.0-99.0); MEAN CORPUSCULAR HGB 27.9 pg (27.0-31.0); MEAN CORPUSCULAR HGB CONC 32.2 g/dl (33.0-37.0); MEAN PLATELET VOLUME 10.6 fl (9.6-12.3); MONO # 0.7 10*3/uL (0.1-1.0); MONO % 6.1 % (3.0-9.0); NEUT % 71.9 % (47.0-73.0); PLATELET COUNT AUTOMATED 291 10*3/uL (130-400); POTASSIUM 3.8 mmol/L (3.5-5.1); RED BLOOD COUNT 3.91 10*6/uL (4.10-5.10); RED CELL DISTRI WIDTH 14.1 % (0-14.5); SODIUM 145 mmol/L (136-145); WHITE BLOOD COUNT 11.1 10*3/uL (4.8-10.8)
--- NOTE | 2019-03-30 07:10 | NUR ---
IN TO SEE PT. ASSESSMENT COMPLETE. NO COMPLAINTS AT THIS TIME. RESPIRATIONS EASY AND REGULAR. WILL MONITOR.
[2019-03-30 08:00] VITALS: BP 108/64; BP 110/56
--- NOTE | 2019-03-30 09:36 | NUR ---
PT REQUESTING HER ATIVAN FOR ANXIETY BEFORE GOING TO GET MRI. MEDICATED WITH PRN ATIVAN ORDERED. WILL CHECK EFFECTIVENESS.
--- NOTE | 2019-03-30 10:00 | NUR ---
Per multidisciplinary discharge planning meeting patient is awaiting transfer to [facility]. Awaiting bed availability.
--- NOTE | 2019-03-30 10:14 | NUR ---
PT DOWN FOR MRI AT THIS TIME.
--- NOTE | 2019-03-30 11:00 | NUR ---
PT STATES ATIVAN WAS EFFECTIVE.
--- NOTE | 2019-03-30 11:00 | NUR ---
PT BACK ON THE FLOOR AT THIS TIME.
--- NOTE | 2019-03-30 11:28 | NUR ---
PT CO ABDOMINAL PAIN RATED A 11/27. MEDICATED WITH PRN TORADOL ORDERED. WILL CHECK EFFECTIVENESS. CALL LIGHT WITHIN REACH.
--- NOTE | 2019-03-30 11:30 | NUR ---
PT HAS RASH ON BACK AND STATES THAT IT IS VERY ITCHY. INFORMED. STATES SHE IS GOING TO COME SEE THE RASH AND THEN WILL PUT SOMETHING IN.
--- NOTE | 2019-03-30 11:54 | NUR ---
GAVE PT PO BENEDRYL. PT REFUSED THE PO BENEDRYL AND STATES SHE IS NOT TAKING A CAPSULE BECAUSE THAT WILL NOT WORK FOR HER. SHE STATES SHE ONLY WANTS SOMETHING IV. INFORMED PT REFUSING PO BENADRYL.
--- NOTE | 2019-03-30 11:55 | NUR ---
PT STATES PAIN MED WAS EFFECTIVE. RATING PAIN A 4/10. WILL MONITOR.
[2019-03-30 12:00] VITALS: BP 130/86
--- NOTE | 2019-03-30 13:56 | NUR ---
[facility] CALLED AND HAS A BED FOR THE PATIENT NOW. [facility] SET UP TO COME PICK PATIENT UP WITHIN A HALF HOUR.
--- NOTE | 2019-03-30 14:00 | NUR ---
ATTEMPTED TO CALL [facility] TO GIVE NURSE TO NURSE REPORT AND GOT NO ANSWER. WILL TRY AGAIN.
--- NOTE | 2019-03-30 14:26 | NUR ---
Discharge instructions reviewed with patient/family. Patient receptive and verbalizes understanding. Follow-up care arranged. Written instructions given to patient/family. MONITORED REMOVED. PT LEAVING WITH [facility] AT THIS TIME TO GO TO [facility]. PT LEFT WITH HER BELONGINGS. NANCY NORRIS
--- NOTE | 2019-03-30 14:26 | NUR ---
[facility] HERE TO TAKE PATIENT TO [facility] AT THIS TIME.
== END 2019-03-30 14:26 | disposition other institution (70) | DRG 602 ==
LOC: ED 03:59 → EDHOLD 06:24 → 4E 06:24
PROVIDERS: Emergency Medicine; Internal Medicine; ADMIT Internal Medicine
DX: L03.213 Periorbital cellulitis (principal); G93.41 Metabolic encephalopathy; F33.3 Major depressive disorder, recurrent, severe with psychotic symptoms; K21.9 Gastro-esophageal reflux disease without esophagitis; F43.10 Post-traumatic stress disorder, unspecified; G89.29 Other chronic pain; J44.9 Chronic obstructive pulmonary disease, unspecified; R41.0 Disorientation, unspecified; R55 Syncope and collapse; M54.5 Low back pain; D89.89 Other specified disorders involving the immune mechanism, not elsewhere classified; K90.0 Celiac disease; F41.1 Generalized anxiety disorder; E03.9 Hypothyroidism, unspecified; K58.9 Irritable bowel syndrome, unspecified; F17.210 Nicotine dependence, cigarettes, uncomplicated; G43.909 Migraine, unspecified, not intractable, without status migrainosus; G62.9 Polyneuropathy, unspecified; E66.9 Obesity, unspecified; Z90.49 Acquired absence of other specified parts of digestive tract; Z98.51 Tubal ligation status; Z90.711 Acquired absence of uterus with remaining cervical stump; Z82.49 Family history of ischemic heart disease and other diseases of the circulatory system; Z88.0 Allergy status to penicillin; Z88.1 Allergy status to other antibiotic agents; Z88.8 Allergy status to other drugs, medicaments and biological substances; Z88.6 Allergy status to analgesic agent; Z91.041 Radiographic dye allergy status; Z88.5 Allergy status to narcotic agent; Z91.018 Allergy to other foods; Z81.8 Family history of other mental and behavioral disorders; Z82.0 Family history of epilepsy and other diseases of the nervous system; Z79.899 Other long term (current) drug therapy; Z68.32 Body mass index [BMI] 32.0-32.9, adult

== ENCOUNTER 2019-05-18 20:09 | Observation (INO) | payer MEDICARE ==
[~2019-05-18] VITALS: Ht 172.7 cm; Wt 101.6 kg
[2019-05-18 20:11] VITALS: BP 104/50; BP 104/75
[2019-05-18 20:42] LABS: BASO % 0.1 % (0.0-1.0); EOS # 0.2 10*3/uL (0.0-0.4); EOS % 2.4 % (1.0-4.0); HEMATOCRIT 35.2 % (37.0-47.0); HEMOGLOBIN 11.8 g/dl (12.0-16.0); LYMPH # 1.8 10*3/uL (1.3-4.4); LYMPH % 23.8 % (27.0-41.0); MEAN CELL VOLUME 85.4 fl (81.0-99.0); MEAN CORPUSCULAR HGB 28.6 pg (27.0-31.0); MEAN CORPUSCULAR HGB CONC 33.5 g/dl (33.0-37.0); MEAN PLATELET VOLUME 10.3 fl (9.6-12.3); MONO # 0.4 10*3/uL (0.1-1.0); MONO % 5.4 % (3.0-9.0); NEUT # 5.1 10*3/uL (2.3-7.9); NEUT % 66.5 % (47.0-73.0); PLATELET COUNT AUTOMATED 227 10*3/uL (130-400); RED BLOOD COUNT 4.12 10*6/uL (4.10-5.10); RED CELL DISTRI WIDTH 13.6 % (0-14.5); WHITE BLOOD COUNT 7.6 10*3/uL (4.8-10.8)
[2019-05-18 20:54] LABS: ACT PARTIAL THROMBO TIME 25.4 SECONDS (20.0-32.1); INTERNATIONAL NORM RATIO 0.9 (2.0-3.5)
[2019-05-18 20:59] LABS: ALBUMIN 3.4 gm/dl (3.1-4.5); ALKALINE PHOSPHATASE 61 U/L (45-117); BUN 17 mg/dl (7-24); CHLORIDE 109 mmol/L (98-107); CREATININE 0.82 mg/dL (0.55-1.02); SGOT/AST 10 IU/L (3-35); SGPT/ALT 21 U/L (12-78); SODIUM 141 mmol/L (136-145); TOTAL PROTEIN 6.2 gm/dL (6.4-8.2)
[2019-05-18 21:04] LABS: TROPONIN I < 0.015 ng/ml (<0.045)
--- NOTE | 2019-05-19 01:58 | NUR ---
PT WILL HAVE CTA OF CHEST PERFORMED PRIOR TO ADMISSION TO [facility]. SPOKE TO RNS IN [facility] WHO AGREE TO WAIT UNTIL AFTER CT COMPLETE.
[2019-05-19 03:12] VITALS: BP 139/87
--- NOTE | 2019-05-19 03:12 | NUR ---
A 43, admitted to [facility], under the services of ALMA Solano DO with a diagnosis of ANAPHALAXIS. Chief complaint is CHEST FABIAN, FACIAL SWELLING AND SOB. Patient arrived via stretcher from ER. Monitor applied. Initial assessment completed. Vital signs taken and recorded. ALMA SOLANO DO notified of admission to the unit. Orders received. See assessment for past medical history, medications and allergies. Patient and/or family oriented to unit. [facility] visitation policy reviewed. Clothing/patient valuable form completed. DULCE ADBI
[2019-05-19] MEDS ORDERED: INVEGA6 MG PO (03:51)
[2019-05-19 04:00] VITALS: BP 139/87
[2019-05-19 06:23] LABS: BASO % 0.2 % (0.0-1.0); EOS % 0.1 % (1.0-4.0); HEMATOCRIT 38.3 % (37.0-47.0); HEMOGLOBIN 12.6 g/dl (12.0-16.0); LYMPH % 10.3 % (27.0-41.0); MEAN CELL VOLUME 84.7 fl (81.0-99.0); MEAN CORPUSCULAR HGB 27.9 pg (27.0-31.0); MEAN CORPUSCULAR HGB CONC 32.9 g/dl (33.0-37.0); MEAN PLATELET VOLUME 10.2 fl (9.6-12.3); MONO # 0.1 10*3/uL (0.1-1.0); MONO % 1.1 % (3.0-9.0); NEUT # 8.6 10*3/uL (2.3-7.9); NEUT % 86.9 % (47.0-73.0); PLATELET COUNT AUTOMATED 268 10*3/uL (130-400); RED BLOOD COUNT 4.52 10*6/uL (4.10-5.10); RED CELL DISTRI WIDTH 13.3 % (0-14.5); WHITE BLOOD COUNT 9.9 10*3/uL (4.8-10.8)
[2019-05-19 06:56] LABS: CHLORIDE 108 mmol/L (98-107)
[2019-05-19 07:00] LABS: BUN 16 mg/dl (7-24); CREATININE 0.93 mg/dL (0.55-1.02)
[2019-05-19 07:09] LABS: SODIUM 141 mmol/L (136-145)
[2019-05-19 08:00] VITALS: BP 132/76
--- NOTE | 2019-05-19 08:00 | NUR ---
PT TO [facility]TRA[facility] VIA WC.
--- NOTE | 2019-05-19 08:28 | NUR ---
PT RETURNED FROM ULTRAOUND VIA . NO ACUTE DISTRESS NOTED.
--- NOTE | 2019-05-19 09:18 | NUR ---
Patient requested paperwork for HPOA/Living Will. Provided packet to patient.
--- NOTE | 2019-05-19 10:03 | NUR ---
DR TERRY IN TO SEE PT.
--- NOTE | 2019-05-19 10:51 | NUR ---
PT REFUSED CT SCAN. DOCTOR AND CT STAFF NOTIFIED.
[2019-05-19] MEDS ORDERED: SYNTHROID25 MCG PO (11:03)
[2019-05-19] MEDS ORDERED: SINGULAIR10 M1 PO (11:03)
[2019-05-19 12:00] VITALS: BP 124/60
[2019-05-19] MEDS ORDERED: PREDNISONE10 MG PO (12:11)
--- NOTE | 2019-05-19 12:38 | NUR ---
Discharge instructions reviewed with patient/family. Patient receptive and verbalizes understanding. Follow-up care arranged. Written instructions given to patient/family. DANIEL RINCON
== END 2019-05-19 12:38 | disposition home or self-care (01) ==
LOC: ED 20:09 → EDHOLD 05-19 01:04 → ICCU 05-19 01:04
PROVIDERS: Emergency Medicine; Student in an Organized Health Care Education/Training Program; ADMIT Internal Medicine
DX: R07.89 Other chest pain (principal); T78.2XXA Anaphylactic shock, unspecified, initial encounter; R22.1 Localized swelling, mass and lump, neck; D64.9 Anemia, unspecified; E87.6 Hypokalemia; E87.8 Other disorders of electrolyte and fluid balance, not elsewhere classified; R73.9 Hyperglycemia, unspecified; E83.51 Hypocalcemia; K21.9 Gastro-esophageal reflux disease without esophagitis; G43.909 Migraine, unspecified, not intractable, without status migrainosus; E66.9 Obesity, unspecified; M54.5 Low back pain; G89.29 Other chronic pain; M35.9 Systemic involvement of connective tissue, unspecified; K90.0 Celiac disease; K58.9 Irritable bowel syndrome, unspecified; F41.1 Generalized anxiety disorder; K44.9 Diaphragmatic hernia without obstruction or gangrene; E03.9 Hypothyroidism, unspecified; F43.10 Post-traumatic stress disorder, unspecified; J45.909 Unspecified asthma, uncomplicated; G47.00 Insomnia, unspecified; G62.9 Polyneuropathy, unspecified; F17.210 Nicotine dependence, cigarettes, uncomplicated; F31.9 Bipolar disorder, unspecified; Y92.89 Other specified places as the place of occurrence of the external cause

== ENCOUNTER 2019-07-20 17:23 | Emergency (ER) | payer MEDICARE ==
[~2019-07-20] VITALS: Ht 172.7 cm; Wt 99.8 kg
[~2019-07-20 17:23] MED LIST changes: +INVEGA6 MG PO
[2019-07-20 17:27] VITALS: BP 107/47
[2019-07-20] MEDS ORDERED: CLINDAMYCIN HC300 MG PO (18:00)
== END 2019-07-20 18:59 | disposition home or self-care (01) ==
LOC: ED 17:23
DX: K02.9 Dental caries, unspecified (principal); K03.81 Cracked tooth; J45.909 Unspecified asthma, uncomplicated; K21.9 Gastro-esophageal reflux disease without esophagitis; F32.9 Major depressive disorder, single episode, unspecified; F41.1 Generalized anxiety disorder; E03.9 Hypothyroidism, unspecified; G43.909 Migraine, unspecified, not intractable, without status migrainosus; E66.9 Obesity, unspecified; G62.9 Polyneuropathy, unspecified; Z88.1 Allergy status to other antibiotic agents; Z88.0 Allergy status to penicillin; Z88.8 Allergy status to other drugs, medicaments and biological substances; Z91.048 Other nonmedicinal substance allergy status; Z88.5 Allergy status to narcotic agent; Z91.018 Allergy to other foods; Z79.899 Other long term (current) drug therapy; Z90.49 Acquired absence of other specified parts of digestive tract; Z90.711 Acquired absence of uterus with remaining cervical stump; Z98.51 Tubal ligation status; Z87.891 Personal history of nicotine dependence

== ENCOUNTER 2019-07-23 15:18 | Emergency (ER) | payer MEDICARE ==
[~2019-07-23] VITALS: Ht 172.7 cm; Wt 99.8 kg
[2019-07-23 15:23] VITALS: BP 107/51
[2019-07-23 16:42] LABS: BASO % 0.4 % (0.0-1.0); EOS # 0.4 10*3/uL (0.0-0.4); EOS % 5.5 % (1.0-4.0); HEMATOCRIT 32.6 % (37.0-47.0); LYMPH # 1.5 10*3/uL (1.3-4.4); LYMPH % 19.5 % (27.0-41.0); MEAN CELL VOLUME 83.8 fl (81.0-99.0); MEAN CORPUSCULAR HGB CONC 33.4 g/dl (33.0-37.0); MEAN PLATELET VOLUME 9.6 fl (9.6-12.3); MONO # 0.3 10*3/uL (0.1-1.0); MONO % 4.6 % (3.0-9.0); NEUT % 67.8 % (47.0-73.0); PLATELET COUNT AUTOMATED 255 10*3/uL (130-400); RED BLOOD COUNT 3.89 10*6/uL (4.10-5.10); RED CELL DISTRI WIDTH 14.3 % (0-14.5); WHITE BLOOD COUNT 7.4 10*3/uL (4.8-10.8)
[2019-07-23 16:57] LABS: ALBUMIN 3.3 gm/dl (3.1-4.5); ALKALINE PHOSPHATASE 63 U/L (45-117); BUN 15 mg/dl (7-24); CHLORIDE 113 mmol/L (98-107); CREATININE 0.74 mg/dL (0.55-1.02); POTASSIUM 3.7 mmol/L (3.5-5.1); SGOT/AST 13 IU/L (3-35); SGPT/ALT 25 U/L (12-78); SODIUM 143 mmol/L (136-145)
== END 2019-07-23 18:43 | disposition home or self-care (01) ==
LOC: ED 15:18
PROVIDERS: Physician Assistant
DX: R60.0 Localized edema (principal); K04.7 Periapical abscess without sinus; L25.9 Unspecified contact dermatitis, unspecified cause; F31.9 Bipolar disorder, unspecified; J44.9 Chronic obstructive pulmonary disease, unspecified; K21.9 Gastro-esophageal reflux disease without esophagitis; F17.210 Nicotine dependence, cigarettes, uncomplicated; Z88.0 Allergy status to penicillin; Z88.1 Allergy status to other antibiotic agents; Z88.8 Allergy status to other drugs, medicaments and biological substances; Z91.048 Other nonmedicinal substance allergy status; Z91.018 Allergy to other foods; Z88.6 Allergy status to analgesic agent; Z79.2 Long term (current) use of antibiotics; Z79.899 Other long term (current) drug therapy; Z90.49 Acquired absence of other specified parts of digestive tract; Z90.711 Acquired absence of uterus with remaining cervical stump; Z98.51 Tubal ligation status

== ENCOUNTER 2019-07-29 16:45 | Observation (INO) | payer MEDICARE ==
[~2019-07-29] VITALS: Ht 172.7 cm; Wt 99.8 kg
[2019-07-29 16:54] VITALS: BP 105/50
[2019-07-29 17:07] LABS: HEMATOCRIT 32.9 % (37.0-47.0); MEAN CELL VOLUME 83.7 fl (81.0-99.0); MEAN CORPUSCULAR HGB CONC 33.4 g/dl (33.0-37.0); MEAN PLATELET VOLUME 9.3 fl (9.6-12.3); PLATELET COUNT AUTOMATED 300 10*3/uL (130-400); RED BLOOD COUNT 3.93 10*6/uL (4.10-5.10)
[2019-07-29 17:22] LABS: ACT PARTIAL THROMBO TIME 26.7 SECONDS (20.0-32.1)
[2019-07-29 17:24] LABS: LIPASE 80 U/L (73-393)
[2019-07-29 17:25] LABS: ALBUMIN 3.5 gm/dl (3.1-4.5); ALKALINE PHOSPHATASE 62 U/L (45-117); BUN 16 mg/dl (7-24); CHLORIDE 111 mmol/L (98-107); CREATININE 0.99 mg/dL (0.55-1.02); POTASSIUM 3.6 mmol/L (3.5-5.1); SGOT/AST 23 IU/L (3-35); SGPT/ALT 34 U/L (12-78); SODIUM 141 mmol/L (136-145); TOTAL CELLS COUNTED 100 #CELLS; TOTAL PROTEIN 6.5 gm/dL (6.4-8.2)
[2019-07-29 17:26] LABS: PLATELET SUFFICIENCY NORMAL (NORMAL)
[2019-07-29 17:34] LABS: BETA-HCG, QUANT < 1.0 mIU/mL (1-3); TROPONIN I < 0.015 ng/ml (<0.045)
[2019-07-29 18:02] VITALS: BP 120/64
--- NOTE | 2019-07-29 18:03 | NUR ---
PT IS RESTING IN ROOM WITH NO SIGNS OF ACUTE DISTRESS NOTED AT THIS TIME. VS STABLE. SIDE RAILS UP X2. WILL CONTINUE TO MONITOR
[2019-07-29 19:30] VITALS: BP 121/58
--- NOTE | 2019-07-29 19:32 | NUR ---
PT RESTING ON CART C/O 10/10 CP AND FULLER. PT GIVEN FENTENYL FOR PAIN. PT TOLERATED WELL. PT AWARE OF ADMISSION STATUS. CALL LIGHT WITHIN REACH. DENIES UNMET NEEDS. WILL CONTINUE TO MONITOR.
--- NOTE | 2019-07-29 19:45 | NUR ---
REPEAT EKG COMPLETED AT BEDSIDE. PT REPORTS PAIN IS IMPROVING. PT DENIES UNMET NEEDS. WILL CONTINUE TO MONITOR.
--- NOTE | 2019-07-29 20:05 | NUR ---
HOSPITALIST AT BEDSIDE
[2019-07-29 20:30] VITALS: BP 112/73
--- NOTE | 2019-07-29 20:30 | NUR ---
A 44, admitted to , under the services of KD Lobo DO with a diagnosis of CHEST PAIN. Chief complaint is CHEST PAIN. Patient arrived via stretcher from ER. Monitor applied. Initial assessment completed. Vital signs taken and recorded. KD LOBO DO notified of admission to the unit. Orders received. See assessment for past medical history, medications and allergies. Patient and/or family oriented to unit. [facility] 5TH FLOOR visitation policy reviewed. Clothing/patient valuable form completed. SUSANNA FLORIAN
[2019-07-29] MEDS ORDERED: GABAPENTIN100 M2 PO (21:13)
[2019-07-29] MEDS ORDERED: PERPHENAZINE2 MG PO (21:16)
[2019-07-29] MEDS ORDERED: RAMELTEON8 MG PO (21:16)
--- NOTE | 2019-07-29 21:47 | NUR ---
NOTIFIED DR. MARIE PATIENTS MED REC IS UP TO DATE.
[2019-07-30] VITALS: BP 107/57
--- NOTE | 2019-07-30 02:59 | NUR ---
PAITENT SLEEPING, NO SIGNS OF DISTRESS. RESPIRATIONS EASY, NON LABORED. BED IN NLOWEST POSITION,CALL LIGHT WITHIN REACH. WILL CONTINUE TO MONITOR.
--- NOTE | 2019-07-30 05:34 | NUR ---
TYLENOL GIVEN FOR C/O HEADACHE. PATIENT STATES THAT TYLENOL IS NOT GOING TO WORK.
[2019-07-30 06:27] LABS: BUN 17 mg/dl (7-24); CHLORIDE 111 mmol/L (98-107); CREATININE 0.91 mg/dL (0.55-1.02); POTASSIUM 3.9 mmol/L (3.5-5.1); SODIUM 141 mmol/L (136-145)
[2019-07-30 06:28] LABS: HEMATOCRIT 34.8 % (37.0-47.0); MEAN CELL VOLUME 83.5 fl (81.0-99.0); MEAN CORPUSCULAR HGB 27.3 pg (27.0-31.0); MEAN CORPUSCULAR HGB CONC 32.8 g/dl (33.0-37.0); MEAN PLATELET VOLUME 9.5 fl (9.6-12.3); PLATELET COUNT AUTOMATED 307 10*3/uL (130-400); RED BLOOD COUNT 4.17 10*6/uL (4.10-5.10); RED CELL DISTRI WIDTH 13.8 % (0-14.5); WHITE BLOOD COUNT 6.3 10*3/uL (4.8-10.8)
--- NOTE | 2019-07-30 06:45 | NUR ---
PATIENT SLEPT THROUGHOUT THE NIGHT.
[2019-07-30 07:25] LABS: BASOPHILS 1 % (0-1); PLATELET SUFFICIENCY NORMAL (NORMAL); TOTAL CELLS COUNTED 100 #CELLS
--- NOTE | 2019-07-30 07:31 | NUR ---
Doctor, This patient is ordered Rozerem at bedtime. It is currently on backorder. Please consider changing this to something else or if the patient has some from home that she can bring in, that would work as well. Thank you, Pharmacy
[2019-07-30 08:00] VITALS: BP 120/60
--- NOTE | 2019-07-30 08:15 | NUR ---
IN PT ROOM TO COMPLETE ASSESSMENT, PT IS COMPLAINGING OF A MIGRAINE AND STATES THAT THE TYLENOL SHE HAS BEEN GIVEN IS NOT WORKING. SHE NOTES THAT SHE WAS GIVEN SOMETHING STRONGER IN THE ER THAT WORKED BETTER. PT DENIES COMPLAINTS OF CHEST PAIN AT THIS TIME. CALL LIGHT WITHIN REACH, WILL CONTINUE TO MONITOR
--- NOTE | 2019-07-30 09:20 | NUR ---
PT COMPLAING OF A MIGRAINE RATING IT A 9/10 PRN TYLENO PO GIVEN AT THIS TIME. CALL LIGHT IS WITHIN REACH, WILL CONTINUE TO MONITOR
--- NOTE | 2019-07-30 09:44 | NUR ---
PT STATES THAT THE TYLENOL HAS NOT BEEN EFFECTIVE AND WANTS SOMETHING ELSE FOR THE MIGRAINE
--- NOTE | 2019-07-30 09:48 | NUR ---
CALLED DR HEART TO LET HIM KNOW THAT TYLENOL IS NOT HELPING HER MIGRAINE AND THAT THE RASH ON HER NECK IS GETTING WORSE PER THE PATIENT. HE STATES HE WILL PUT AN ORDER IN
--- NOTE | 2019-07-30 12:18 | NUR ---
PT SLEEPING AT THIS TIME AND STATES THAT HER MIGRAINE HAS GONE DOWN AT THIS TIME
--- NOTE | 2019-07-30 12:20 | NUR ---
UPDATED DR HEART TO LET HIM KNOW THAT THE PATIENT IS FEELING BETTER AT THIS TIME
--- NOTE | 2019-07-30 12:31 | NUR ---
PT IS OBERVATIONS STATUS AND WILL RETURN HOME WHEN MEDICALLY STABLE WITH NO NEEDS.
--- NOTE | 2019-07-30 13:05 | NUR ---
IN PT ROOM AT THIS TIME AND WENT OVER DISCHARGE INSTRUCTIONS WITH PATIENT, SHE HAS NO FURTHER QUESTIONS AT THIS TIME. IV REMOVED AND DATABASE OPERATOR REMOVED. WAITING TO RECIEVE HOME MEDICATIONS FROM PHARMACY AND THEN PATIENT WILL LEAVE
--- NOTE | 2019-07-30 13:13 | NUR ---
GAVE PATIENT HER HOME MEDICATIONS AND SHE IS FINISHING GETTING READY THEN LEAVING THE FLOOR
--- NOTE | 2019-07-30 13:30 | NUR ---
[place] IS GONE OFF OF THE FLOOR
== END 2019-07-30 13:30 | disposition home or self-care (01) ==
LOC: ED 16:45 → 5E 19:24 → EDHOLD 19:24 → 5E 19:41
PROVIDERS: Emergency Medicine; Internal Medicine; ADMIT Family Medicine
DX: R07.2 Precordial pain (principal); R00.1 Bradycardia, unspecified; E87.8 Other disorders of electrolyte and fluid balance, not elsewhere classified; R79.82 Elevated C-reactive protein (CRP); R79.89 Other specified abnormal findings of blood chemistry; K21.9 Gastro-esophageal reflux disease without esophagitis; F41.9 Anxiety disorder, unspecified; G43.909 Migraine, unspecified, not intractable, without status migrainosus; E66.9 Obesity, unspecified; K58.9 Irritable bowel syndrome, unspecified; F31.9 Bipolar disorder, unspecified; F17.210 Nicotine dependence, cigarettes, uncomplicated; R60.9 Edema, unspecified; Z23 Encounter for immunization

== ENCOUNTER 2019-10-22 22:57 | Observation (INO) | payer MEDICARE ==
[~2019-10-22] VITALS: Ht 172.7 cm; Wt 106.7 kg
[~2019-10-22 22:57] MED LIST changes: +GABAPENTIN100 M2 PO; +PERPHENAZINE2 MG PO; +RAMELTEON8 MG PO
[2019-10-22 23:00] VITALS: BP 121/58
[2019-10-22 23:20] LABS: HEMATOCRIT 34.7 % (37.0-47.0); MEAN CELL VOLUME 81.6 fl (81.0-99.0); MEAN CORPUSCULAR HGB 26.6 pg (27.0-31.0); MEAN CORPUSCULAR HGB CONC 32.6 g/dl (33.0-37.0); MEAN PLATELET VOLUME 9.6 fl (9.6-12.3); PLATELET COUNT AUTOMATED 301 10*3/uL (130-400); RED BLOOD COUNT 4.25 10*6/uL (4.10-5.10); RED CELL DISTRI WIDTH 14.6 % (0-14.5); WHITE BLOOD COUNT 6.7 10*3/uL (4.8-10.8)
[2019-10-22 23:31] LABS: ACT PARTIAL THROMBO TIME 25.4 SECONDS (20.0-32.1); INTERNATIONAL NORM RATIO 0.9 (2.0-3.5)
[2019-10-22 23:40] LABS: ALBUMIN 3.3 gm/dl (3.1-4.5); ALKALINE PHOSPHATASE 60 U/L (45-117); BUN 13 mg/dl (7-24); CHLORIDE 116 mmol/L (98-107); CREATININE 0.92 mg/dL (0.55-1.02); POTASSIUM 3.7 mmol/L (3.5-5.1); SGOT/AST 17 IU/L (3-35); SGPT/ALT 26 U/L (12-78); SODIUM 143 mmol/L (136-145); TOTAL PROTEIN 6.6 gm/dL (6.4-8.2)
[2019-10-22 23:43] LABS: BASOPHILS 1 % (0-1); BURR CELLS FEW; OVALOCYTES FEW; PLATELET SUFFICIENCY NORMAL (NORMAL); TOTAL CELLS COUNTED 100 #CELLS
[2019-10-22 23:50] LABS: TROPONIN I < 0.015 ng/ml (<0.045)
[2019-10-22 23:51] VITALS: BP 120/57
[2019-10-23 00:57] VITALS: BP 94/68
--- NOTE | 2019-10-23 02:00 | NUR ---
PT RESTING IN BED WITH EYES CLOSE.PT EASILY AROUSABLE.SECOND EKG COMPLETED.
[2019-10-23 02:03] VITALS: BP 126/70
--- NOTE | 2019-10-23 02:32 | NUR ---
PT DENIES ANY OPEN WOUNDS SORE OR CUT AT THIS TIME.
[2019-10-23 02:45] VITALS: BP 121/61
--- NOTE | 2019-10-23 02:45 | NUR ---
A 44, admitted to 5E, under the services of CECE Wallace DO with a diagnosis of CHEST PAIN. Chief complaint is CHEST PAIN. Patient arrived via stretcher from ER. Monitor applied. Initial assessment completed. Vital signs taken and recorded. CECE WALLACE DO notified of admission to the unit. Orders received. See assessment for past medical history, medications and allergies. Patient and/or family oriented to unit. [address] visitation policy reviewed. Clothing/patient valuable form completed. NO WOUNDS ON ADMISSION. SKIN WDI. ROMAN MUNOZ
--- NOTE | 2019-10-23 03:26 | NUR ---
DR LAKE NOTIFIED OF UPDATED MED REC.
--- NOTE | 2019-10-23 03:49 | NUR ---
ON ADMISSION PATIENT COMPLAINING OF CONTINUED 10/10 MIDSTERNAL CHEST PAIN. ON ENTRY TO ROOM TO ADMINISTER NORCO, PATIENT IS SLEEPING. WILL HOLD OFF OF THE MEDICATION FOR NOW, PATIENT APPEARS TO BE IN NO ACUTE DISTRESS.
[2019-10-23 06:18] LABS: ALBUMIN 3.3 gm/dl (3.1-4.5); ALKALINE PHOSPHATASE 61 U/L (45-117); BUN 12 mg/dl (7-24); CHLORIDE 115 mmol/L (98-107); CHOLESTEROL 209 mg/dL (<200); CREATININE 0.94 mg/dL (0.55-1.02); HDL CHOLESTEROL 42 mg/dl (40-60); LDL CHOLESTEROL 130 mg/dL (9-159); POTASSIUM 3.9 mmol/L (3.5-5.1); SGOT/AST 22 IU/L (3-35); SGPT/ALT 31 U/L (12-78); SODIUM 140 mmol/L (136-145); TOTAL PROTEIN 6.7 gm/dL (6.4-8.2); TRIGLYCERIDES 186 mg/dl (<150); VLDL CHOLESTEROL 37 mg/dL (6-40)
[2019-10-23 06:28] LABS: HEMATOCRIT 36.9 % (37.0-47.0); MEAN CORPUSCULAR HGB CONC 31.7 g/dl (33.0-37.0); MEAN PLATELET VOLUME 9.9 fl (9.6-12.3); PLATELET COUNT AUTOMATED 298 10*3/uL (130-400); RED CELL DISTRI WIDTH 14.6 % (0-14.5); WHITE BLOOD COUNT 6.2 10*3/uL (4.8-10.8)
[2019-10-23 07:10] LABS: BASOPHILS 2 % (0-1); TOTAL CELLS COUNTED 100 #CELLS
[2019-10-23 07:11] LABS: PLATELET SUFFICIENCY NORMAL (NORMAL)
[2019-10-23 07:12] LABS: BURR CELLS FEW
[2019-10-23 08:00] VITALS: BP 115/57
--- NOTE | 2019-10-23 08:08 | NUR ---
MEDICATED WITH PRN IV MORPHINE FOR C/O LEFT OF STERNUM CHEST PAIN.
[2019-10-23 08:15] VITALS: BP 132/84
--- NOTE | 2019-10-23 08:22 | NUR ---
PRN IV MORPHINE STARTING TO BE EFFECTIVE, PER PATIENT.
[2019-10-23] MEDS ORDERED: NAPROSYN500 MG PO (10:15)
--- NOTE | 2019-10-23 11:41 | NUR ---
Discharge instructions reviewed with patient. Patient receptive and verbalizes understanding. Follow-up care arranged. Written instructions given to patient. DISCHARGED TO [facility], AMBULATORY, FOR TRANSPORT HOME BY PRIVATE VEHICLE WITH HER FAMILY. SAMI VICTORIA
== END 2019-10-23 11:41 | disposition home or self-care (01) ==
LOC: ED 22:57 → EDHOLD 10-23 01:55 → 5E 10-23 02:01
PROVIDERS: Emergency Medicine; Student in an Organized Health Care Education/Training Program; ADMIT Emergency Medicine
DX: R07.89 Other chest pain (principal); R06.82 Tachypnea, not elsewhere classified; D72.1 Eosinophilia; E87.8 Other disorders of electrolyte and fluid balance, not elsewhere classified; E44.1 Mild protein-calorie malnutrition; E78.5 Hyperlipidemia, unspecified; K21.9 Gastro-esophageal reflux disease without esophagitis; F41.9 Anxiety disorder, unspecified; I34.1 Nonrheumatic mitral (valve) prolapse; G43.909 Migraine, unspecified, not intractable, without status migrainosus; F43.10 Post-traumatic stress disorder, unspecified; E66.9 Obesity, unspecified; M54.5 Low back pain; G89.29 Other chronic pain; K44.9 Diaphragmatic hernia without obstruction or gangrene; E03.9 Hypothyroidism, unspecified; G47.00 Insomnia, unspecified; J45.909 Unspecified asthma, uncomplicated; G62.9 Polyneuropathy, unspecified; F31.9 Bipolar disorder, unspecified; D64.9 Anemia, unspecified; F17.210 Nicotine dependence, cigarettes, uncomplicated; K58.9 Irritable bowel syndrome, unspecified

== ENCOUNTER 2020-03-12 01:32 | Emergency (ER) | payer MEDICARE ==
[~2020-03-12] VITALS: Ht 170.1 cm; Wt 79.4 kg
[~2020-03-12 01:32] MED LIST changes: +NAPROSYN500 MG PO
[2020-03-12 01:37] VITALS: BP 132/78
== END 2020-03-12 03:39 | disposition home or self-care (01) ==
LOC: ED 01:32
DX: D84.1 Defects in the complement system (principal); F17.210 Nicotine dependence, cigarettes, uncomplicated; Z88.1 Allergy status to other antibiotic agents; Z88.0 Allergy status to penicillin; Z88.8 Allergy status to other drugs, medicaments and biological substances; Z79.899 Other long term (current) drug therapy; Z90.49 Acquired absence of other specified parts of digestive tract; Z90.711 Acquired absence of uterus with remaining cervical stump; Z98.51 Tubal ligation status

== ENCOUNTER → 2021-08-17 | Outpatient (CLI) | payer MEDICARE ==
[2021-08-17 11:12] LABS: BASO % 0.3 % (0.0-1.0); EOS # 0.2 10*3/uL (0.0-0.4); EOS % 2.5 % (1.0-4.0); HEMATOCRIT 39.1 % (37.0-47.0); LYMPH # 1.6 10*3/uL (1.3-4.4); LYMPH % 22.1 % (27.0-41.0); MEAN CELL VOLUME 82.7 fl (81.0-99.0); MEAN CORPUSCULAR HGB 27.9 pg (27.0-31.0); MEAN CORPUSCULAR HGB CONC 33.8 g/dl (33.0-37.0); MEAN PLATELET VOLUME 10.2 fl (9.6-12.3); MONO # 0.3 10*3/uL (0.1-1.0); MONO % 4.4 % (3.0-9.0); NEUT # 5.1 10*3/uL (2.3-7.9); NEUT % 69.9 % (47.0-73.0); PLATELET COUNT AUTOMATED 281 10*3/uL (130-400); RED BLOOD COUNT 4.73 10*6/uL (4.10-5.10); RED CELL DISTRI WIDTH 12.8 % (0-14.5); WHITE BLOOD COUNT 7.3 10*3/uL (4.8-10.8)
[2021-08-17 11:41] LABS: ALKALINE PHOSPHATASE 81 U/L (45-117); BUN 17 mg/dl (7-24); CHLORIDE 112 mmol/L (98-107); CHOLESTEROL 215 mg/dL (<200); CREATININE 0.76 mg/dL (0.55-1.02); LDL CHOLESTEROL 141 mg/dL (9-159); SGOT/AST 20 IU/L (3-35); SGPT/ALT 26 U/L (12-78); SODIUM 141 mmol/L (136-145); TOTAL PROTEIN 7.6 gm/dL (6.4-8.2); TRIGLYCERIDES 163 mg/dl (<150)
== END | disposition home or self-care (01) ==
LOC: LAB 10:37
PROVIDERS: ATTEND Nurse Practitioner
DX: G47.00 Insomnia, unspecified (principal); F41.1 Generalized anxiety disorder; F32.9 Major depressive disorder, single episode, unspecified; E03.9 Hypothyroidism, unspecified

== ENCOUNTER 2021-10-29 11:06 | Emergency (ER) | payer OTHER, MEDICAID ==
[~2021-10-29] VITALS: Ht 172.7 cm; Wt 99.8 kg
[2021-10-29 12:10] VITALS: BP 128/59
[2021-10-29] MEDS ORDERED: SEPTDS PO (13:49)
== END 2021-10-29 13:55 | disposition home or self-care (01) ==
LOC: ED 11:06
DX: L03.113 Cellulitis of right upper limb (principal); K21.9 Gastro-esophageal reflux disease without esophagitis; E78.5 Hyperlipidemia, unspecified; E03.9 Hypothyroidism, unspecified; G43.909 Migraine, unspecified, not intractable, without status migrainosus; E66.9 Obesity, unspecified; J45.909 Unspecified asthma, uncomplicated; Z88.0 Allergy status to penicillin; Z88.1 Allergy status to other antibiotic agents; Z88.8 Allergy status to other drugs, medicaments and biological substances; Z79.899 Other long term (current) drug therapy; Z98.51 Tubal ligation status; Z90.49 Acquired absence of other specified parts of digestive tract; Z90.711 Acquired absence of uterus with remaining cervical stump; Z87.891 Personal history of nicotine dependence

== ENCOUNTER → 2021-11-13 | Outpatient (CLI) | payer OTHER, MEDICAID ==
[~2021-11-13] MED LIST changes: +SEPTDS PO
[2021-11-13 11:18] LABS: BASO # 0.1 10*3/uL (0.0-0.1); BASO % 0.6 % (0.0-1.0); EOS # 0.4 10*3/uL (0.0-0.4); EOS % 4.6 % (1.0-4.0); LYMPH # 1.7 10*3/uL (1.3-4.4); LYMPH % 19.9 % (27.0-41.0); MEAN CELL VOLUME 81.3 fl (81.0-99.0); MEAN CORPUSCULAR HGB 27.3 pg (27.0-31.0); MEAN CORPUSCULAR HGB CONC 33.5 g/dl (33.0-37.0); MEAN PLATELET VOLUME 10.3 fl (9.6-12.3); MONO # 0.4 10*3/uL (0.1-1.0); NEUT # 5.7 10*3/uL (2.3-7.9); NEUT % 67.8 % (47.0-73.0); PLATELET COUNT AUTOMATED 337 10*3/uL (130-400); RED BLOOD COUNT 4.55 10*6/uL (4.10-5.10); RED CELL DISTRI WIDTH 13.3 % (0-14.5); WHITE BLOOD COUNT 8.5 10*3/uL (4.8-10.8)
[2021-11-13 11:45] LABS: BUN 15 mg/dl (7-24); CHLORIDE 109 mmol/L (98-107); CREATININE 0.61 mg/dL (0.55-1.02); SGOT/AST 20 IU/L (3-35); SGPT/ALT 28 U/L (12-78); SODIUM 140 mmol/L (136-145); TOTAL PROTEIN 7.2 gm/dL (6.4-8.2)
[2021-11-13 11:52] LABS: VITAMIN D, 25-HYDROXY 27.9 ng/mL (30-100)
[2021-11-13 11:55] LABS: ALKALINE PHOSPHATASE 65 U/L (45-117)
== END | disposition home or self-care (01) ==
LOC: LAB 10:30
PROVIDERS: ATTEND Internal Medicine Nephrology
DX: E03.9 Hypothyroidism, unspecified (principal); R53.82 Chronic fatigue, unspecified; K21.9 Gastro-esophageal reflux disease without esophagitis; E55.9 Vitamin D deficiency, unspecified

== ENCOUNTER → 2021-12-20 | Outpatient (CLI) | payer OTHER, MEDICAID | END | disposition home or self-care (01) | LOC: MAMMO 11-22 11:30 | PROVIDERS: ATTEND Internal Medicine Nephrology | DX: Z12.31 Encounter for screening mammogram for malignant neoplasm of breast (principal) ==

== ENCOUNTER 2022-03-16 10:02 | Emergency (ER) | payer OTHER, MEDICAID ==
[~2022-03-16] VITALS: Ht 167.6 cm; Wt 99.8 kg
[2022-03-16 10:05] VITALS: BP 139/71
[2022-03-16] MEDS ORDERED: TUSSIN DM PO (12:28)
== END 2022-03-16 12:53 | disposition home or self-care (01) ==
LOC: ED 10:02
DX: J06.9 Acute upper respiratory infection, unspecified (principal); Z20.822 Contact with and (suspected) exposure to COVID-19; Z88.0 Allergy status to penicillin; Z88.1 Allergy status to other antibiotic agents; Z88.8 Allergy status to other drugs, medicaments and biological substances; Z79.899 Other long term (current) drug therapy; Z90.49 Acquired absence of other specified parts of digestive tract; Z90.710 Acquired absence of both cervix and uterus; Z98.51 Tubal ligation status; F17.210 Nicotine dependence, cigarettes, uncomplicated

== ENCOUNTER → 2022-03-22 | Outpatient (CLI) | payer OTHER, MEDICAID ==
[~2022-03-22] MED LIST changes: +TUSSIN DM PO
== END | disposition home or self-care (01) ==
LOC: US 03:32
PROVIDERS: ATTEND Internal Medicine Nephrology
DX: R22.1 Localized swelling, mass and lump, neck (principal)

== ENCOUNTER 2022-06-15 20:00 | Emergency (ER) | payer OTHER, MEDICAID ==
[~2022-06-15] VITALS: Wt 117.9 kg
[2022-06-15 20:51] LABS: ACT PARTIAL THROMBO TIME 23.8 SECONDS (20.0-32.1)
[2022-06-15] MEDS ORDERED: BUSPAR15 MG PO (20:57)
[2022-06-15 20:58] LABS: ALKALINE PHOSPHATASE 59 U/L (46-116); BUN 9 mg/dl (9-23); CHLORIDE 109 mmol/L (98-107); POTASSIUM 3.3 mmol/L (3.4-5.1); SGPT/ALT 33 U/L (10-49); TOTAL PROTEIN 6.4 gm/dL (6.0-8.0)
[2022-06-15 21:25] LABS: HEMATOCRIT 33.6 % (37.0-47.0); MEAN CELL VOLUME 84.8 fl (81.0-99.0); MEAN PLATELET VOLUME 10.7 fl (9.6-12.3); PLATELET COUNT AUTOMATED 258 10*3/uL (130-400); RED BLOOD COUNT 3.96 10*6/uL (4.10-5.10); RED CELL DISTRI WIDTH 13.8 % (0-14.5); WHITE BLOOD COUNT 8.3 10*3/uL (4.8-10.8)
[2022-06-15 21:27] LABS: MANUAL DIFF REFLEX YES
[2022-06-15 21:47] LABS: ATYPICAL LYMPHS 3 % (0-0); BASOPHILS 1 % (0-1); PLATELET SUFFICIENCY NORMAL (NORMAL); POLYCHROMASIA SLIGHT; TOTAL CELLS COUNTED 100 #CELLS; TOXIC GRANULATION SLIGHT
[2022-06-15 21:48] LABS: OVALOCYTES FEW
[2022-06-15 23:25] VITALS: BP 130/56
== END 2022-06-16 03:14 | disposition home or self-care (01) ==
LOC: ED 20:00
PROVIDERS: Emergency Medicine
DX: R07.89 Other chest pain (principal); R73.9 Hyperglycemia, unspecified; E87.6 Hypokalemia; J45.909 Unspecified asthma, uncomplicated; F41.9 Anxiety disorder, unspecified; F31.9 Bipolar disorder, unspecified; K21.9 Gastro-esophageal reflux disease without esophagitis; E78.5 Hyperlipidemia, unspecified; E87.8 Other disorders of electrolyte and fluid balance, not elsewhere classified; G47.00 Insomnia, unspecified; G43.909 Migraine, unspecified, not intractable, without status migrainosus; G62.9 Polyneuropathy, unspecified; D64.9 Anemia, unspecified; I34.1 Nonrheumatic mitral (valve) prolapse; Z88.8 Allergy status to other drugs, medicaments and biological substances; Z88.0 Allergy status to penicillin; Z88.6 Allergy status to analgesic agent; Z90.49 Acquired absence of other specified parts of digestive tract; Z90.711 Acquired absence of uterus with remaining cervical stump; Z98.51 Tubal ligation status; F17.210 Nicotine dependence, cigarettes, uncomplicated

== ENCOUNTER → 2022-06-20 | Outpatient (CLI) | payer OTHER, MEDICAID ==
[~2022-06-20] MED LIST changes: +BUSPAR15 MG PO
== END | disposition home or self-care (01) ==
LOC: LAB 00:48
PROVIDERS: ATTEND Internal Medicine Nephrology
DX: E87.6 Hypokalemia (principal); D64.9 Anemia, unspecified; R73.9 Hyperglycemia, unspecified

== ENCOUNTER → 2022-10-17 | Outpatient (CLI) | payer OTHER, MEDICAID ==
[2022-10-17 15:20] LABS: FREE T4 0.78 ng/dl (0.89-1.76)
== END | disposition home or self-care (01) ==
LOC: LAB 14:35
PROVIDERS: ATTEND Internal Medicine Nephrology
DX: K59.00 Constipation, unspecified (principal); E03.9 Hypothyroidism, unspecified

== ENCOUNTER 2023-01-19 13:27 | Emergency (ER) | payer OTHER, MEDICAID ==
[~2023-01-19] VITALS: Ht 175.2 cm; Wt 99.8 kg
[2023-01-19] MEDS ORDERED: TRULICITY3 MG/0.5 M SQ (13:42)
[2023-01-19] MEDS ORDERED: CLONIDINE HCL0.2 MG PO (13:42)
[2023-01-19] MEDS ORDERED: VILAZODONE HCL PO (13:43)
[2023-01-19] MEDS ORDERED: ZIPRASIDONE HCL20 M1 PO (13:44)
[2023-01-19] MEDS ORDERED: 'XANAX1 MG PO (13:44)
[2023-01-19 14:23] LABS: BASO # 0.1 10*3/uL (0.0-0.1); BASO % 0.7 % (0.0-1.0); EOS # 0.4 10*3/uL (0.0-0.4); EOS % 4.5 % (1.0-4.0); HEMATOCRIT 39.8 % (37.0-47.0); LYMPH # 2.4 10*3/uL (1.3-4.4); LYMPH % 25.1 % (27.0-41.0); MEAN CELL VOLUME 82.7 fl (81.0-99.0); MEAN CORPUSCULAR HGB 28.5 pg (27.0-31.0); MEAN CORPUSCULAR HGB CONC 34.4 g/dl (33.0-37.0); MEAN PLATELET VOLUME 10.5 fl (9.6-12.3); MONO # 0.5 10*3/uL (0.1-1.0); MONO % 4.9 % (3.0-9.0); NEUT # 6.1 10*3/uL (2.3-7.9); PLATELET COUNT AUTOMATED 271 10*3/uL (130-400); RED BLOOD COUNT 4.81 10*6/uL (4.10-5.10); RED CELL DISTRI WIDTH 13.9 % (0-14.5); WHITE BLOOD COUNT 9.5 10*3/uL (4.8-10.8)
[2023-01-19 14:44] LABS: ALKALINE PHOSPHATASE 64 U/L (46-116); BUN 15 mg/dl (9-23); CHLORIDE 111 mmol/L (98-107); LIPASE 41 U/L (12-53); POTASSIUM 3.7 mmol/L (3.4-5.1); SGPT/ALT 27 U/L (5-49)
[2023-01-19 16:25] LABS: BILIRUBIN 1+ (Negative); BLOOD Negative (Negative); CLARITY Clear (Clear); COLOR Dark Yellow (Yellow); GLUCOSE Negative (Negative); KETONE Trace (Negative); LEUKO ESTERASE Negative (Negative); NITRITE Negative (Negative); PH 5.5 (4.5-8.0); SPECIFIC GRAVITY >= 1.030 (1.001-1.030)
[2023-01-19 17:18] LABS: BACTERIA TRACE
[2023-01-19 19:10] VITALS: BP 130/48
== END 2023-01-19 19:34 | disposition home or self-care (01) ==
LOC: ED 13:27
PROVIDERS: Nurse Practitioner
DX: R10.32 Left lower quadrant pain (principal); R10.31 Right lower quadrant pain; J45.909 Unspecified asthma, uncomplicated; F32.A Depression, unspecified; K21.9 Gastro-esophageal reflux disease without esophagitis; F41.9 Anxiety disorder, unspecified; G43.909 Migraine, unspecified, not intractable, without status migrainosus; Z88.6 Allergy status to analgesic agent; Z88.0 Allergy status to penicillin; Z88.8 Allergy status to other drugs, medicaments and biological substances; Z90.49 Acquired absence of other specified parts of digestive tract; Z90.711 Acquired absence of uterus with remaining cervical stump; Z98.51 Tubal ligation status; F17.210 Nicotine dependence, cigarettes, uncomplicated

== ENCOUNTER → 2023-02-19 | Outpatient (CLI) | payer OTHER, MEDICAID ==
[~2023-02-19] MED LIST changes: +'XANAX1 MG PO; +CLONIDINE HCL0.2 MG PO; +TRULICITY3 MG/0.5 M SQ; +VILAZODONE HCL PO; +ZIPRASIDONE HCL20 M1 PO
== END | disposition home or self-care (01) ==
LOC: RAD 12:14
PROVIDERS: ATTEND Internal Medicine Nephrology
DX: M54.50 Low back pain, unspecified (principal)

== ENCOUNTER → 2023-04-29 | Outpatient (CLI) | payer OTHER, MEDICAID | END | disposition home or self-care (01) | LOC: US 01:24 | PROVIDERS: ATTEND Internal Medicine Nephrology | DX: R59.9 Enlarged lymph nodes, unspecified (principal) ==

== ENCOUNTER 2024-05-21 07:44 | Emergency (ER) | payer OTHER, MEDICAID ==
[~2024-05-21] VITALS: Ht 175.2 cm; Wt 99.8 kg
[~2024-05-21 07:44] MED LIST changes: +DOXEPIN HCL50 MG PO; +LASIX20 MG PO; +LINZESS145 MC1 PO; +SUMATRIPTAN SUC25 M1 PO; +VENT7GM INH
[2024-05-21 07:56] VITALS: BP 102/50
[2024-05-21] MEDS ORDERED: SODIUM CHLORIDE 0.9% 1,000 ML IV ONE (08:05)
[2024-05-21 08:18] LABS: BASO # 0.1 10*3/uL (0.0-0.1); EOS # 0.2 10*3/uL (0.0-0.4); EOS % 2.6 % (1.0-4.0); HEMATOCRIT 38.1 % (37.0-47.0); MEAN CELL VOLUME 84.5 fl (81.0-99.0); MEAN CORPUSCULAR HGB 27.5 pg (27.0-31.0); MEAN CORPUSCULAR HGB CONC 32.5 g/dl (33.0-37.0); MEAN PLATELET VOLUME 10.6 fl (9.6-12.3); MONO # 0.6 10*3/uL (0.1-1.0); MONO % 10.5 % (3.0-9.0); NEUT # 3.7 10*3/uL (2.3-7.9); NEUT % 64.1 % (47.0-73.0); PLATELET COUNT AUTOMATED 248 10*3/uL (130-400); RED BLOOD COUNT 4.51 10*6/uL (4.10-5.10); RED CELL DISTRI WIDTH 14.3 % (0-14.5); WHITE BLOOD COUNT 5.7 10*3/uL (4.8-10.8)
[2024-05-21 08:41] LABS: BUN 10 mg/dl (9-23); CHLORIDE 105 mmol/L (98-107)
[2024-05-21] MEDS ORDERED: AVPAK AZITHROM250 M1 PO (08:57)
== END 2024-05-21 08:58 | disposition home or self-care (01) ==
LOC: ED 07:44
PROVIDERS: Emergency Medicine
DX: J40 Bronchitis, not specified as acute or chronic (principal); R53.1 Weakness; F31.9 Bipolar disorder, unspecified; F41.9 Anxiety disorder, unspecified; F17.210 Nicotine dependence, cigarettes, uncomplicated; Z88.1 Allergy status to other antibiotic agents; Z88.0 Allergy status to penicillin; Z88.8 Allergy status to other drugs, medicaments and biological substances; Z79.899 Other long term (current) drug therapy; Z90.49 Acquired absence of other specified parts of digestive tract; Z90.710 Acquired absence of both cervix and uterus; Z20.822 Contact with and (suspected) exposure to COVID-19

== ENCOUNTER → 2024-07-12 | Outpatient (CLI) | payer OTHER, MEDICAID ==
[~2024-07-12] MED LIST changes: +AVPAK AZITHROM250 M1 PO
== END | disposition home or self-care (01) ==
LOC: US 10:45
PROVIDERS: ATTEND Internal Medicine Nephrology
DX: R16.1 Splenomegaly, not elsewhere classified (principal); R22.2 Localized swelling, mass and lump, trunk

== ENCOUNTER 2025-03-05 14:17 | Emergency (ER) | payer MEDICAID ==
[~2025-03-05] VITALS: Ht 172.7 cm; Wt 86.2 kg
[2025-03-05 14:27] VITALS: BP 139/79
[2025-03-05] MEDS ORDERED: IOHEXOL 300 MG/ML 100 ML VIAL IV ONE (15:00)
[2025-03-05] MEDS ORDERED: SEPTDS PO (18:14)
[2025-03-05] MEDS ORDERED: Sulfamethoxazole/Trimethopri 1 TAB TAB PO ONE ×2 (18:15→18:20)
[2025-03-05] MEDS ORDERED: IBUPROFEN 800 MG 4 TAB ED PACK PO SCH (18:20)
== END 2025-03-05 18:48 | disposition home or self-care (01) ==
LOC: ED 14:17
DX: L73.2 Hidradenitis suppurativa (principal); I50.9 Heart failure, unspecified; F41.9 Anxiety disorder, unspecified; J45.909 Unspecified asthma, uncomplicated; F31.9 Bipolar disorder, unspecified; K21.9 Gastro-esophageal reflux disease without esophagitis; E78.5 Hyperlipidemia, unspecified; G47.00 Insomnia, unspecified; G43.909 Migraine, unspecified, not intractable, without status migrainosus; E66.9 Obesity, unspecified; Z88.0 Allergy status to penicillin; Z88.8 Allergy status to other drugs, medicaments and biological substances